=== PATIENT | female | born 1985 | race Caucasian/White ===

== ENCOUNTER 2016-11-07 19:04 | Emergency (ER) | payer SELFPAY ==
[~2016-11-07 19:04] MED LIST: BACI28.43 TP; BACL10TA PO; BUPR150T11 PO; CYCL10TA2 PO; ETON68IM2 SQ; FERR-26 PO; FLUO40CA9 PO; FLUT16SP NS; FLUT1DIS3 INH; GABA600T2 PO; HYDR-971 PO; HYDR25TA PO; LORA10TA3 PO; MOME13HF2 IH; NAPR375T3 PO; NAPR500T8 PO; OMEP40CA5 PO; ONDA8TAB9 PO; OXYC-323 PO; PRED20TA PO; PROAIR HFA8.5 GM INH; QUET200T4 PO; TIZA4TAB PO; TRAZ100T12 PO; VARE0.5T PO
[2016-11-07 19:46] VITALS: BP 142/63
--- NOTE | 2016-11-07 20:06 | PHYS DOC ---
Past Medical History Past Medical History: Anxiety, Arthritis, Asthma, Depression, Fibromyalgia, Migraines Additional Past Medical Histor: PTSD, INSOMNIA, BURSITIS Past Surgical History: Cholecystectomy Additional Past Surgical Histo: LAPROSCOPY,MIRENA REMOVAL Alcohol Use: Occasionally Drug Use: None Adult General Chief Complaint Chief Complaint: EARACHE/EAR PAIN HPI HPI Patient is a 31 year old female with history of fibromyalgia, anxiety, depression, who presents today with left earlobe infection that began a couple days ago after wearing earrings. Patient denies any fever. Patient denies any drainage from the area. Review of Systems Review of Systems Constitutional: Denies fever or chills [] Musculoskeletal: Denies back pain or joint pain [] Integument: Left earlobe infection Neurologic: Denies headache, focal weakness or sensory changes [] Endocrine: Denies polyuria or polydipsia [] Current Medications Current Medications Current Medications Medications (Trade) Dose Ordered Sig/Cindi Start Time Stop Time Status Last Admin Dose Admin Diphtheria/ Tetanus/Acell Pertussis (Boostrix) 0.5 ml ONCE ONCE 11/07/16 20:15 11/07/16 20:16 UNV Allergies Allergies Allergies Coded Allergies Type Severity Reaction Last Updated Verified Penicillins Allergy Intermediate Shortness of Air 08/17/16 Yes amoxicillin Allergy Intermediate 08/17/16 Yes latex Allergy Intermediate Rash 08/17/16 Yes Physical Exam Physical Exam Constitutional: Well developed, well nourished, no acute distress, non-toxic appearance. [] Skin: Left earlobe with small amount of redness and diffuse swelling, no drainage. The lobe is warm and tender to palpate no fluctuance. Back: No tenderness, no CVA tenderness. [] Extremities: No tenderness, no cyanosis, no clubbing, ROM intact, no edema. [] Neurologic: Alert and oriented X 3, normal motor function, normal sensory function, no focal deficits noted. [] Psychologic: Affect normal, judgement normal, mood normal. [] Current Patient Data Vital Signs Vital Signs Date Time Temp Pulse Resp B/P Pulse Ox O2 Delivery O2 Flow Rate FiO2 11/07/16 19:46 98.0 77 16 99 Room Air 98.0 EKG EKG [] Radiology/Procedures Radiology/Procedures [] Course & Med Decision Making Course & Med Decision Making Pertinent Labs and Imaging studies reviewed. (See chart for details) Patient is in the ED with left earlobe infection. She was advised not to wear any earrings until the infection is gone, she was informed the pierced part of the earlobe might. Instructed not re-guevara until the infection is completely healed. Given tetanus in the ED, discharged Bactrim. Instructed to clean the area twice a day and apply warm compresses to the area. Provided return precautions and discharged in stable condition. Dragon Disclaimer Dragon Disclaimer This electronic medical record was generated, in whole or in part, using a voice recognition dictation system. Departure Departure Impression: Primary Impression: Infection of left earlobe Disposition: HOME, SELF-CARE Condition: STABLE Referrals: PEYTON DOLAN MD (PCP) Follow-up with your own doctor in one week Patient Instructions: Skin Infections Additional Instructions: You were seen for left earlobe infection. Keep the area clean and dry. You can apply warm compresses to the area. The guevara part of the ear might close, if that happens do not re-guevara it until the infection has completely healed. Come back to the emergency room if symptoms worsen otherwise follow-up with your own doctor in one week. Scripts Sulfamethoxazole/Trimethoprim (Bactrim Ds Tablet)1 Each Tablet1 Tab PO BID #20 TAB Prov:SHALOM RUBIO APRN 11/07/16 SHALOM RUBIO APRN Nov 07, 2016 20:06
[2016-11-07] MEDS ORDERED: SULF1TAB24 PO (20:12)
[2016-11-07] MEDS ORDERED: DIPHTH,PERTUSS(ACELL),TET TOX 0.5 ML DISP.SYRIN. VAX IM ONE (20:15)
== END 2016-11-07 20:18 | disposition home or self-care (01) ==
LOC: ER 19:04
DX: H60.392 Other infective otitis externa, left ear (principal); F32.9 Major depressive disorder, single episode, unspecified; F43.10 Post-traumatic stress disorder, unspecified; J45.909 Unspecified asthma, uncomplicated; M79.7 Fibromyalgia; G43.909 Migraine, unspecified, not intractable, without status migrainosus; Z90.49 Acquired absence of other specified parts of digestive tract; Z88.0 Allergy status to penicillin; Z88.1 Allergy status to other antibiotic agents; Z91.040 Latex allergy status
CPT/HCPCS: 90471; 90715; 99283-25

== ENCOUNTER 2017-01-03 11:15 | Emergency (ER) | payer OTHER ==
[~2017-01-03] VITALS: Ht 175.3 cm; Wt 123.8 kg
[~2017-01-03 11:15] MED LIST changes: +BENZ100C PO; -ETON68IM2 SQ; +ETON68IM3 SQ; +PRED50TA PO; +SULF1TAB24 PO
[2017-01-03 11:22] VITALS: BP 129/72
[2017-01-03] MEDS ORDERED: POLY10DR OD (11:48)
--- NOTE | 2017-01-03 11:48 | PHYS DOC ---
Past Medical History Past Medical History: Anxiety, Arthritis, Asthma, Depression, Fibromyalgia, Migraines, Other Additional Past Medical Histor: PTSD, INSOMNIA, BURSITIS Past Surgical History: Cholecystectomy, Tonsillectomy Additional Past Surgical Histo: LAPROSCOPY,MIRENA REMOVAL, TUBAL LIGATION Additional Information: 3 TO 4 CIGARETTES A DAY Alcohol Use: Occasionally Drug Use: None Adult General Chief Complaint Chief Complaint: EYE PROBLEMS HPI HPI Patient is a 31 year old female presents emergency Department with complaint of right eye redness and draining that began 2 days ago. Patient does not work contacts. Patient denies any injury to her eye. Patient denies any fevers, chills, myalgias or arthralgias. Patient denies any rashes to her skin. Patient does not have any recall of contact with anyone that has conjunctivitis. She denies antibiotic use in the past 30 days. Review of Systems Review of Systems Constitutional: Denies fever or chills [] Eyes: Denies change in visual acuity, redness, or eye pain [] HENT: Denies nasal congestion or sore throat [] Respiratory: Denies cough or shortness of breath [] Cardiovascular: No additional information not addressed in HPI [] GI: Denies abdominal pain, nausea, vomiting, bloody stools or diarrhea [] : Denies dysuria or hematuria [] Musculoskeletal: Denies back pain or joint pain [] Integument: Denies rash or skin lesions [] Neurologic: Denies headache, focal weakness or sensory changes [] Endocrine: Denies polyuria or polydipsia [] Allergies Allergies Allergies Coded Allergies Type Severity Reaction Last Updated Verified Penicillins Allergy Intermediate Shortness of Air 08/17/16 Yes amoxicillin Allergy Intermediate 08/17/16 Yes latex Allergy Intermediate Rash 08/17/16 Yes Physical Exam Physical Exam Constitutional: Well developed, well nourished, no acute distress, non-toxic appearance. [] HENT: Normocephalic, atraumatic, bilateral external ears normal, oropharynx moist, no oral exudates, nose normal. [] Eyes: Right periorbital region is normal in appearance. There is no Austin Storm Kemar sign. There is mild subconjunctival injection with yellowish green discharge. Extra ocular motions are intact and 6 cardinal positions of gaze. Anterior chamber is deep, clear and quiet. Pupils equal round reactive to light and accommodation. Neck: Normal range of motion, no tenderness, supple, no stridor. [] Cardiovascular:Heart rate regular rhythm, no murmur [] Lungs & Thorax: Bilateral breath sounds clear to auscultation [] Abdomen: Bowel sounds normal, soft, no tenderness, no masses, no pulsatile masses. [] Skin: Warm, dry, no erythema, no rash. [] Back: No tenderness, no CVA tenderness. [] Extremities: No tenderness, no cyanosis, no clubbing, ROM intact, no edema. [] Neurologic: Alert and oriented X 3, normal motor function, normal sensory function, no focal deficits noted. [] Psychologic: Affect normal, judgement normal, mood normal. [] Current Patient Data Vital Signs Vital Signs Date Time Temp Pulse Resp B/P Pulse Ox O2 Delivery O2 Flow Rate FiO2 01/03/17 11:22 98.1 86 20 129/72 95 Room Air 98.1 EKG EKG [] Radiology/Procedures Radiology/Procedures [] Course & Med Decision Making Course & Med Decision Making Pertinent Labs and Imaging studies reviewed. (See chart for details) [] Dragon Disclaimer Dragon Disclaimer This electronic medical record was generated, in whole or in part, using a voice recognition dictation system. Departure Departure Impression: Primary Impression: Conjunctivitis Disposition: 01 HOME, SELF-CARE Condition: GOOD Referrals: PEYTON DOLAN MD (PCP) Patient Instructions: Bacterial Conjunctivitis, [id number] Additional Instructions: 1. Take the medications prescribed. 2. Apply warm compresses to the right eye every 2 hours for 20-30 minutes at a time. 3. Avoid rubbing your eyes much as possible as this will increase irritation. 4. Follow-up with your primary care doctor on Friday or of next week for reevaluation. Scripts Polymyxin B Sulf/Trimethoprim (Polytrim Eye Drops)10 Ml Drops1 Drop OD Q6HRS 7 Days Prov:SAPPHIRE EVERETT 01/03/17 SAPPHIRE EVERETT Jan 03, 2017 11:48
== END 2017-01-03 11:58 | disposition home or self-care (01) ==
LOC: ER 11:15
DX: H10.9 Unspecified conjunctivitis (principal); F41.9 Anxiety disorder, unspecified; M19.90 Unspecified osteoarthritis, unspecified site; J45.909 Unspecified asthma, uncomplicated; F32.9 Major depressive disorder, single episode, unspecified; M79.7 Fibromyalgia; G43.909 Migraine, unspecified, not intractable, without status migrainosus; F43.10 Post-traumatic stress disorder, unspecified; G47.00 Insomnia, unspecified; F17.210 Nicotine dependence, cigarettes, uncomplicated; Z88.0 Allergy status to penicillin; Z88.1 Allergy status to other antibiotic agents; Z91.040 Latex allergy status
CPT/HCPCS: 99283

== ENCOUNTER 2017-01-31 20:16 | Emergency (ER) | payer OTHER ==
[~2017-01-31 20:16] MED LIST changes: +POLY10DR OD
[2017-01-31] MEDS ORDERED: IV NORMAL SALINE 1000ML BAG 1,000 ML IV SCH (22:00)
[2017-01-31 22:08] LABS: BASO # 0.1 x10^3/uL (0.0-0.2); BASO % 1 % (0-3); EOS % 2 % (0-3); HEMATOCRIT 40.2 % (36.0-47.0); HEMOGLOBIN 13.4 g/dL (12.0-15.5); LYMPH # 2.8 x10^3/uL (1.0-4.8); LYMPH % 28 % (24-48); MEAN CORPUSCULAR HEMOGLOBIN 30 pg (25-35); MEAN CORPUSCULAR HGB CONC 33 g/dL (31-37); MEAN CORPUSCULAR VOLUME 90 fL (79-100); MONO % 6 % (0-9); NEUT % 63 % (31-73); PLATELET COUNT 269 x10^3/uL (140-400); RED BLOOD COUNT 4.46 x10^6/uL (3.50-5.40); WHITE BLOOD COUNT 10.1 x10^3/uL (4.0-11.0)
[2017-01-31 22:22] LABS: BILIRUBIN,URINE NEGATIVE (NEG); GLUCOSE,URINE NEGATIVE (NEG); NITRITE,URINE NEGATIVE (NEG); PROTEIN,URINE NEGATIVE (NEG-TRACE)
[2017-01-31 22:29] LABS: BACTERIA,URINE MODERATE /HPF (0-FEW); RBC,URINE 0 /HPF (0-2); SQUAMOUS EPITHELIAL CELL,UR MOD /LPF; WBC,URINE OCC /HPF (0-4); YEAST,URINE PRESENT /HPF
[2017-01-31 22:38] LABS: CALCIUM 8.8 mg/dL (8.5-10.1); GFR 65.6; POTASSIUM 3.2 mmol/L (3.5-5.1)
[2017-01-31 22:54] VITALS: BP 107/55
[2017-01-31] MEDS ORDERED: POTASSIUM CHLORIDE 20 MEQ TABLET.ER. PO ONE (23:00)
[2017-01-31] MEDS ORDERED: LORAZEPAM 1 MG TABLET. PO ONE (23:00)
--- NOTE | 2017-01-31 23:00 | PHYS DOC ---
Past Medical History Past Medical History: Anxiety, Arthritis, Asthma, Depression, Fibromyalgia, Migraines, Other Additional Past Medical Histor: PTSD, INSOMNIA, BURSITIS,LUPUS Past Surgical History: Cholecystectomy, Tonsillectomy Additional Past Surgical Histo: LAPROSCOPY,MIRENA REMOVAL, TUBAL LIGATION Alcohol Use: Occasionally Drug Use: None Adult General Chief Complaint Chief Complaint: DIZZY/LIGHT HEADED HPI HPI Patient is a 31 year old female who presents feeling "jittery". Patient reports about 5:30 PM she started feeling jittery and dizzy (lightheaded). She has had similar episodes in the past. She has not taken anything at home for symptoms. No other acute complaints. Review of Systems Review of Systems Constitutional: Jittery, dizzy. Denies fever or chills Respiratory: Denies cough or shortness of breath Cardiovascular: Denies chest pain GI: Denies abdominal pain, nausea, vomiting, or diarrhea Musculoskeletal: Denies back pain or joint pain Neurologic: Denies headache, focal weakness or sensory changes Current Medications Current Medications Current Medications Medications (Trade) Dose Ordered Sig/Cindi Start Time Stop Time Status Last Admin Dose Admin Lorazepam (Ativan) 1 mg 1X ONCE 01/31/17 23:00 01/31/17 23:01 DC 01/31/17 23:03 1 MG Potassium Chloride (Klor-Con) 40 meq 1X ONCE 01/31/17 23:00 01/31/17 23:01 DC 01/31/17 23:04 40 MEQ Sodium Chloride (Iv Sodium Chloride 0.9% 1000ml Bag) 1,000 ml @ 1,000 mls/hr Q1H 01/31/17 22:00 01/31/17 22:59 DC 01/31/17 21:56 1,000 MLS/HR Allergies Allergies Allergies Coded Allergies Type Severity Reaction Last Updated Verified Penicillins Allergy Intermediate Shortness of Air 08/17/16 Yes amoxicillin Allergy Intermediate 08/17/16 Yes latex Allergy Intermediate Rash 08/17/16 Yes Physical Exam Physical Exam Constitutional: Well developed, well nourished, no acute distress, non-toxic appearance HENT: Normocephalic, atraumatic, bilateral external ears normal Cardiovascular: Heart rate normal, regular rhythm, no murmur Lungs & Thorax: Bilateral breath sounds clear to auscultation Abdomen: Bowel sounds normal, soft, non-distended, no TTP Skin: Warm, dry, no erythema, no rash Extremities: No obvious deformity, no edema Neurologic: Alert and oriented X 3, no gross deficits noted Psychologic: Anxious Current Patient Data Vital Signs Vital Signs Date Time Temp Pulse Resp B/P Pulse Ox O2 Delivery O2 Flow Rate FiO2 01/31/17 22:54 68 107/55 99 Room Air 01/31/17 20:53 97.9 20 97.9 Lab Values Laboratory Tests Test 01/31/17 20:20 01/31/17 21:03 01/31/17 21:27 POC Urine HCG, Qualitative Hcg negative (Negative) Urine Collection Type Unknown Urine Color Yellow Urine Clarity Clear Urine pH 6.0 Urine Specific [place] 1.020 Urine Protein Negativemg/dL (NEG-TRACE) Urine Glucose (UA) Negativemg/dL (NEG) Urine Ketones (Stick) Negativemg/dL (NEG) Urine Blood Negative (NEG) Urine Nitrite Negative (NEG) Urine Bilirubin Negative (NEG) Urine Urobilinogen Dipstick 1.0mg/dL (0.2 mg/dL) Urine Leukocyte Esterase Trace (NEG) Urine RBC 0/HPF (0-2) Urine WBC Occ/HPF (0-4) Urine Squamous Epithelial Cells Mod/LPF Urine Bacteria Moderate/HPF (0-FEW) Urine Mucus Marked/LPF Urine Yeast Present/HPF White Blood Count 10.1x10^3/uL (4.0-11.0) Red Blood Count 4.46x10^6/uL (3.50-5.40) Hemoglobin 13.4g/dL (12.0-15.5) Hematocrit 40.2% (36.0-47.0) Mean Corpuscular Volume 90fL (79-100) Mean Corpuscular Hemoglobin 30pg (25-35) Mean Corpuscular Hemoglobin Concent 33g/dL (31-37) Red Cell Distribution Width 14.0% (11.5-14.5) Platelet Count 269x10^3/uL (140-400) Neutrophils (%) (Auto) 63% (31-73) Lymphocytes (%) (Auto) 28% (24-48) Monocytes (%) (Auto) 6% (0-9) Eosinophils (%) (Auto) 2% (0-3) Basophils (%) (Auto) 1% (0-3) Neutrophils # (Auto) 6.4x10^3uL (1.8-7.7) Lymphocytes # (Auto) 2.8x10^3/uL (1.0-4.8) Monocytes # (Auto) 0.6x10^3/uL (0.0-1.1) Eosinophils # (Auto) 0.2x10^3/uL (0.0-0.7) Basophils # (Auto) 0.1x10^3/uL (0.0-0.2) Sodium Level 140mmol/L (136-145) Potassium Level 3.2mmol/L (3.5-5.1) L Chloride Level 101mmol/L (98-107) Carbon Dioxide Level 30mmol/L (21-32) Anion Gap 9 (6-14) Blood Urea Nitrogen 12mg/dL (7-20) Creatinine 1.0mg/dL (0.6-1.0) Estimated GFR (Cockcroft-Gault) 65.6 Glucose Level 87mg/dL (70-99) Calcium Level 8.8mg/dL (8.5-10.1) Laboratory Tests 01/31/17 21:27 Laboratory Tests 01/31/17 21:27 EKG EKG EKG (my read): sinus rhythm, rate 67, normal axis, QTc 462ms, no acute ischemic changes Radiology/Procedures Radiology/Procedures [] Course & Med Decision Making Course & Med Decision Making Pertinent Labs and Imaging studies reviewed. (See chart for details) Patient is 31 year old female who presents feeling "jittery". Likely due to anxiety. Will check EKG, labs to screen for other causes. IV fluid bolus ordered. EKG ok per my read. Labs largely unremarkable. Slight hypokalemia, oral replacement ordered. Discussed results with patient, who is feeling a little better at this time. Dose of anxiety meds ordered. Patient discharged with instructions for follow up and return precautions. Dragon Disclaimer Dragon Disclaimer This electronic medical record was generated, in whole or in part, using a voice recognition dictation system. Departure Departure Impression: Primary Impression: Jittery feeling Disposition: 01 HOME, SELF-CARE Condition: STABLE Referrals: PEYTON DOALN MD (PCP) Patient Instructions: Anxiety and Panic Attacks Additional Instructions: Thank you for allowing us to provide care today in the Emergency Department. Your evaluation in the Emergency Department did not reveal any concerning reasons for your symptoms. Schedule a follow up appointment with your primary care doctor. Return promptly to the Emergency Department if you develop any new or concerning symptoms. RUBEN RM MD Jan 31, 2017 23:00
--- NOTE | 2017-02-01 12:17 | EKG ---
[facility] [address] [place] [address] Test Date: 2017-01-31 Test Time: 21:58:38 Pat Name: DENNIS ROMAN Department: Room: Gender: F Sourcing Specialist: : 1985 Requested By: RUBEN RM Order Number: [id number] Reading MD: Nayeli Siddiqui Measurements Intervals [place] Rate: 67 P: 64 [place]: 170 QRS: 19 QRSD: 98 T: 25 QT: 434 QTc: 462 Interpretive Statements SINUS RHYTHM T ABNORMALITY IN ANTEROSEPTAL LEADS CONSIDER MYOCARDIAL ISCHEMIA ABNORMAL ECG RI6.01 Compared to ECG 08/23/2016 19:42:39 T-wave abnormality now present Electronically Signed On 02-02-2017 17:28:17 CDT by Nayeli Siddiqui
== END 2017-01-31 23:33 | disposition home or self-care (01) ==
LOC: ER 20:16
DX: R45.0 Nervousness (principal); R42 Dizziness and giddiness; E87.6 Hypokalemia; F41.9 Anxiety disorder, unspecified; M19.90 Unspecified osteoarthritis, unspecified site; J45.909 Unspecified asthma, uncomplicated; F32.9 Major depressive disorder, single episode, unspecified; M79.7 Fibromyalgia; G43.909 Migraine, unspecified, not intractable, without status migrainosus; F43.10 Post-traumatic stress disorder, unspecified; M32.9 Systemic lupus erythematosus, unspecified; G47.00 Insomnia, unspecified; Z88.0 Allergy status to penicillin; Z88.1 Allergy status to other antibiotic agents; Z91.040 Latex allergy status
CPT/HCPCS: 36415; 80048; 81001; 81025; 85027; 87086; 93005; 96360; 99285; J7030

== ENCOUNTER 2017-02-24 14:50 | Emergency (ER) | payer OTHER ==
[~2017-02-24] VITALS: Ht 175.3 cm; Wt 122.5 kg
[2017-02-24 15:14] VITALS: BP 134/60
[2017-02-24] MEDS ORDERED: HYDROcodone/APAP 5/325MG 1 TAB TABLET PO ONE (15:30)
[2017-02-24] MEDS ORDERED: DIPHTH,PERTUSS(ACELL),TET TOX 0.5 ML DISP.SYRIN. VAX IM ONE (15:30)
[2017-02-24] MEDS ORDERED: LIDOCAINE 1% / SOD BICARB 8.4% 20 ML VIAL. IJ ONE (15:30)
--- NOTE | 2017-02-24 15:49 | PHYS DOC ---
Past Medical History Past Medical History: Anxiety, Arthritis, Asthma, Depression, Fibromyalgia, Migraines, Other Additional Past Medical Histor: PTSD, INSOMNIA, BURSITIS,LUPUS Past Surgical History: Cholecystectomy, Tonsillectomy, Tubal ligation Additional Past Surgical Histo: LAPROSCOPY,MIRENA REMOVAL, TUBAL LIGATION Additional Information: < 1/2 ppd Alcohol Use: Occasionally Drug Use: None Adult General Chief Complaint Chief Complaint: FOOT INJURY PAIN HPI HPI Patient is a 31 year old female with history of arthritis, fibromyalgia, anxiety who presents today with puncture wound to the right foot. Patient states she stepped on a telephone patent paralegal prong and it went into her foot, she had rubber slippers on and it pierced through the slippers. Review of Systems Review of Systems Constitutional: Denies fever or chills [] Eyes: Denies change in visual acuity, redness, or eye pain [] HENT: Denies nasal congestion or sore throat [] Musculoskeletal: Denies back pain or joint pain [] Integument: puncture wound to the right foot Neurologic: Denies headache, focal weakness or sensory changes [] Endocrine: Denies polyuria or polydipsia [] Current Medications Current Medications Current Medications Medications (Trade) Dose Ordered Sig/Cindi Start Time Stop Time Status Last Admin Dose Admin Acetaminophen/ Hydrocodone Bitart (Lortab 5/325) 1 tab 1X ONCE 02/24/17 15:30 02/24/17 15:31 DC 02/24/17 15:30 1 TAB Diphtheria/ Tetanus/Acell Pertussis (Boostrix) 0.5 ml ONCE ONCE 02/24/17 15:30 02/24/17 15:31 Cancel Lidocaine/Sodium Bicarbonate (Buffered Lidocaine 1%) 20 ml 1X ONCE 02/24/17 15:30 02/24/17 15:31 DC Allergies Allergies Allergies Coded Allergies Type Severity Reaction Last Updated Verified Penicillins Allergy Intermediate Shortness of Air 08/17/16 Yes amoxicillin Allergy Intermediate 08/17/16 Yes latex Allergy Intermediate Rash 08/17/16 Yes Physical Exam Physical Exam Constitutional: Well developed, well nourished, no acute distress, non-toxic appearance. [] HENT: Normocephalic, atraumatic, bilateral external ears normal, oropharynx moist, no oral exudates, nose normal. [] Eyes: PERRLA, EOMI, conjunctiva normal, no discharge. [] Skin: right arc of the foot with two puncture wounds approx. 1 cm each consistent with stepping on a patent paralegal prongs, no tendon involvement. Neurovascular exam is intact to the RLE. +2 right pedal pulses. Cap refill <2 seconds. Back: No tenderness, no CVA tenderness. [] Extremities: No tenderness, no cyanosis, no clubbing, ROM intact, no edema. [] Neurologic: Alert and oriented X 3, normal motor function, normal sensory function, no focal deficits noted. [] Psychologic: Affect normal, judgement normal, mood normal. [] Current Patient Data Vital Signs Vital Signs Date Time Temp Pulse Resp B/P (MAP) Pulse Ox O2 Delivery O2 Flow Rate FiO2 02/24/17 15:30 16 02/24/17 15:14 98.1 67 95 Room Air 98.1 EKG EKG [] Radiology/Procedures Radiology/Procedures []PROCEDURE: FOOT RIGHT 3V Examination: 3 views of the right foot History: History of puncture wound to the arch of the foot Comparison: None available Findings: The alignment of the tarsal bones grossly appears unremarkable. The tarsometatarsal joints, metatarsophalangeal, interphalangeal joint grossly appears unremarkable. Small osteophyte identified in the superior aspect of the navicular bone. Impression: No acute osseous findings. Indication: []right foot lacerations Procedure: The patient was placed in the appropriate position and anesthesia around the lacerations was 1% buffered lidocaine. The area was then cleaned with 100 ML of normal saline and Betadine. First laceration was closed with 2 interrupted sutures using 4. 0 Ethilon, second laceration was closed with one interrupted sutures using 4. 0 Ethilon. Wound was covered with gauze. Total repaired wound length: 2 lacerations 1 cm each Other Items:none The patient tolerated the procedure well Complications:none DICTATED and SIGNED BY: JOLYNN RAO MD DATE: 02/24/17 [id number] CC: PEYTON DOLAN MD; SHALOM RUBIO APRN; NON,STAFF ~ Course & Med Decision Making Course & Med Decision Making Pertinent Labs and Imaging studies reviewed. (See chart for details) Patient has puncture wound to the right foot after stepping on a patent paralegal prong. Her tetanus is up-to-date. Right foot x-rays interpreted by radiologist are negative for any acute findings. Lacerations were closed by me as noted in procedures. Discharged with Cipro because she had rubber shoes on when she stepped of the prongs. Provided wound care instructions as well as return precautions. Discharged in stable condition. Dragon Disclaimer Dragon Disclaimer This electronic medical record was generated, in whole or in part, using a voice recognition dictation system. Departure Departure Impression: Primary Impression: Puncture wound of foot Disposition: HOME, SELF-CARE Condition: STABLE Referrals: PEYTON DOLAN MD (PCP) follow up with your doctor in 7-10 days for suture removal Patient Instructions: Puncture Wound Additional Instructions: You have puncture wound to the right foot which was closed with stitches. Keep the area clean and dry. Follow-up with your doctor in 7-10 days for suture removal or you can come back to the emergency room. Apply Neosporin to the area twice a day. Scripts Tramadol Hcl (ULTRAM) 50 Mg Tablet 1 TAB PO Q6HRS, #30 TAB Prov: SHALOM RUBIO APRN 02/24/17 Ciprofloxacin Hcl (CIPRO) 500 Mg Tablet 1 TAB PO BID, #14 TAB Prov: SHALOM RUBIO APRN 02/24/17 Problem Qualifiers Primary Impression: Puncture wound of foot Encounter type: initial encounter Laterality: right Qualified Codes: S91.331A - Puncture wound without foreign body, right foot, initial encounter SHALOM RUBIO APRN February 24, 2017 15:49
[2017-02-24] MEDS ORDERED: TRAM-29 PO (16:10)
[2017-02-24] MEDS ORDERED: CIPR500T94 PO (16:10)
== END 2017-02-24 16:20 | disposition home or self-care (01) ==
LOC: ER 15:46
DX: S91.331A Puncture wound without foreign body, right foot, initial encounter (principal); J45.909 Unspecified asthma, uncomplicated; G43.909 Migraine, unspecified, not intractable, without status migrainosus; F43.10 Post-traumatic stress disorder, unspecified; G47.00 Insomnia, unspecified; M32.9 Systemic lupus erythematosus, unspecified; M79.7 Fibromyalgia; Z98.51 Tubal ligation status; Z90.49 Acquired absence of other specified parts of digestive tract; F17.200 Nicotine dependence, unspecified, uncomplicated; W18.39XA Other fall on same level, initial encounter; Y99.8 Other external cause status; Y93.89 Activity, other specified; Y92.89 Other specified places as the place of occurrence of the external cause
CPT/HCPCS: 12001; 73630; 99284-25

== ENCOUNTER 2017-04-17 20:02 | Emergency (ER) | payer OTHER ==
[~2017-04-17] VITALS: Ht 175.3 cm; Wt 126.1 kg
[~2017-04-17 20:02] MED LIST changes: +CIPR500T94 PO; +TRAM-48 PO
[2017-04-17 20:25] VITALS: BP 158/59
--- NOTE | 2017-04-17 20:26 | RAD ---
Indication: Left-sided numbness and slurred speech. Axial imaging through the brain was performed without contrast. One or more of the following individualized dose reduction techniques were utilized for this examination: 1. Automated exposure control 2. Adjustment of the mA and/or kV according to patient size 3. Use of iterative reconstruction technique Correlation is made with prior head CT from 05/18/2016. The ventricles and sulci are within normal limits. No sulcal effacement is identified. No midline shift or hemorrhage is detected. The cisterns are patent. The visualized paranasal sinuses are clear. IMPRESSION: No acute intracranial process is detected. Electronically signed by: Antonio Tom MD (04/17/2017 8:23 PM) [facility]
[2017-04-17] MEDS ORDERED: METOCLOPRAMIDE HCL 10 MG/2 ML VIAL. IV ONE (20:30)
[2017-04-17] MEDS ORDERED: IV NORMAL SALINE 1000ML BAG 1,000 ML IV ONE (20:30)
[2017-04-17] MEDS ORDERED: diphenhydrAMINE 50 MG/ML VIAL IVP ONE (20:30)
[2017-04-17] MEDS ORDERED: PROCHLORPERAZINE 10 MG/2 ML VIAL. IV ONE (20:30)
[2017-04-17 20:57] LABS: BASO # 0.1 x10^3/uL (0.0-0.2); BASO % 1 % (0-3); EOS % 3 % (0-3); HEMATOCRIT 43.2 % (36.0-47.0); HEMOGLOBIN 14.5 g/dL (12.0-15.5); LYMPH # 3.4 x10^3/uL (1.0-4.8); LYMPH % 26 % (24-48); MEAN CORPUSCULAR HEMOGLOBIN 30 pg (25-35); MEAN CORPUSCULAR HGB CONC 34 g/dL (31-37); MEAN CORPUSCULAR VOLUME 91 fL (79-100); MONO % 6 % (0-9); NEUT % 64 % (31-73); PLATELET COUNT 255 x10^3/uL (140-400); RED BLOOD COUNT 4.76 x10^6/uL (3.50-5.40); RED CELL DISTRIBUTION WIDTH 15.6 % (11.5-14.5); WHITE BLOOD COUNT 12.8 x10^3/uL (4.0-11.0)
[2017-04-17 21:05] LABS: BARBITURATES NEG (NEG); BENZODIAZEPINES NEG (NEG); CANNABINOIDS NEG (NEG); COCAINE NEG (NEG); METHADONE NEG (NEG); OPIATES NEG (NEG); PHENCYCLIDINE NEG (NEG)
[2017-04-17 21:07] LABS: INR 1.1 (0.8-1.1); PROTHROMBIN TIME PATIENT 13.2 SEC (11.7-14.0)
[2017-04-17 21:11] LABS: CALCIUM 7.7 mg/dL (8.5-10.1); GFR 65.6; POTASSIUM 4.3 mmol/L (3.5-5.1)
[2017-04-17 21:17] LABS: ALBUMIN 3.5 g/dL (3.4-5.0); C-REACTIVE PROTEIN 4.3 mg/L (0-3.3); TOTAL BILIRUBIN 0.2 mg/dL (0.2-1.0)
--- NOTE | 2017-04-18 06:11 | EKG ---
[facility] [address] [place] [address] Test Date: 2017-04-17 Test Time: 20:25:33 Pat Name: DENNIS ROMAN Department: Room: Gender: F Administrative Staff Supervisor: : 1985 Requested By: IRIS LOERA Order Number: [id number] Reading MD: Measurements Intervals [place] Rate: 77 P: 28 [place]: 150 QRS: 10 QRSD: 90 T: 28 QT: 376 QTc: 427 Interpretive Statements SINUS RHYTHM INCOMPLETE RIGHT BUNDLE BRANCH BLOCK QRS(T) CONTOUR ABNORMALITY CONSIDER ANTEROSEPTAL MYOCARDIAL DAMAGE RI6.01 Unconfirmed report No previous ECG available for comparison
--- NOTE | 2017-04-18 07:03 | ED.ADGEN ---
Past Medical History Past Medical History: Anxiety, Arthritis, Asthma, Depression, Fibromyalgia, Migraines, Other Additional Past Medical Histor: PTSD, INSOMNIA, BURSITIS,LUPUS Past Surgical History: Cholecystectomy, Tonsillectomy, Tubal ligation Additional Past Surgical Histo: LAPROSCOPY,MIRENA REMOVAL, TUBAL LIGATION Alcohol Use: Occasionally Drug Use: None Adult General Chief Complaint Chief Complaint: NEURO SYMPTOMS/DEFICITS [facility] HPI Patient is a 31 year old female with history of cluster headaches Zent[place] with left facial numbness, slurring speech, left upper and left lower extremity weakness with decreased sensation. Symptoms began last evening approximately 6 PM of gradually progress. Patient also reports right temporal headache, described as throbbing headache and rated moderate to severe. Headache is not sudden onset is not the worst headache of the patient's life neck pain, stiffness, change of vision, chest pain, palpitations, shortness of breath. No vomiting, neck pain stiffness, rash. Not currently on any diet supplements weight loss medications. Last menstrual period was 2 weeks ago. Patient has tubal ligation. No other acute symptoms or complaints. Review of Systems Review of Systems ROS as per HPI Current Medications Current Medications Current Medications Medications (Trade) Dose Ordered Sig/Cindi Start Time Stop Time Status Last Admin Dose Admin Diphenhydramine HCl (Benadryl) 50 mg 1X ONCE 04/17/17 20:30 04/17/17 20:35 DC 04/17/17 21:01 50 MG Metoclopramide HCl (Reglan) 10 mg 1X ONCE 04/17/17 20:30 04/17/17 20:35 DC 04/17/17 21:01 10 MG Prochlorperazine Edisylate (Compazine) 10 mg 1X ONCE 04/17/17 20:30 04/17/17 20:35 DC 04/17/17 21:01 10 MG Sodium Chloride 1,000 ml @ 1,000 mls/hr 1X ONCE 04/17/17 20:30 04/17/17 21:29 DC 04/17/17 21:01 1,000 MLS/HR Allergies Allergies Allergies Coded Allergies Type Severity Reaction Last Updated Verified Penicillins Allergy Intermediate Shortness of Air 08/17/16 Yes amoxicillin Allergy Intermediate 08/17/16 Yes latex Allergy Intermediate Rash 08/17/16 Yes Physical Exam Physical Exam Constitutional: Well developed, well nourished, no acute distress, non-toxic appearance. HENT: Normocephalic, atraumatic, bilateral external ears normal, oropharynx moist, no oral exudates, nose normal. Eyes: PERRLA, EOMI, conjunctiva normal. Neck: Normal range of motion, no tenderness, supple. Cardiovascular:Heart rate regular rhythm, no murmur. Lungs & Thorax: Bilateral breath sounds clear to auscultation. Abdomen: Bowel sounds normal, soft, no tenderness. Skin: Warm, dry, no erythema. Back: No tenderness, no CVA tenderness. Extremities: No tenderness. Neurologic: Alert and oriented X 3, mild dysarthria, decreased sensation left side face compared to right, no facial droop or weakness, left upper extremity, pronator drift, decreased sensation on left arm compared to right, left leg drop. Patient is unable to support against gravity. Normal [id number]. Psychologic: Affect, anxious, Current Patient Data Vital Signs Vital Signs Date Time Temp Pulse Resp B/P (MAP) Pulse Ox O2 Delivery O2 Flow Rate FiO2 04/17/17 20:25 98.7 77 18 158/59 (92) 100 Room Air 98.7 Lab Values Laboratory Tests Test 04/17/17 20:40 White Blood Count 12.8 x10^3/uL (4.0-11.0) H Red Blood Count 4.76 x10^6/uL (3.50-5.40) Hemoglobin 14.5 g/dL (12.0-15.5) Hematocrit 43.2 % (36.0-47.0) Mean Corpuscular Volume 91 fL (79-100) Mean Corpuscular Hemoglobin 30 pg (25-35) Mean Corpuscular Hemoglobin Concent 34 g/dL (31-37) Red Cell Distribution Width 15.6 % (11.5-14.5) H Platelet Count 255 x10^3/uL (140-400) Neutrophils (%) (Auto) 64 % (31-73) Lymphocytes (%) (Auto) 26 % (24-48) Monocytes (%) (Auto) 6 % (0-9) Eosinophils (%) (Auto) 3 % (0-3) Basophils (%) (Auto) 1 % (0-3) Neutrophils # (Auto) 8.2 x10^3uL (1.8-7.7) H Lymphocytes # (Auto) 3.4 x10^3/uL (1.0-4.8) Monocytes # (Auto) 0.7 x10^3/uL (0.0-1.1) Eosinophils # (Auto) 0.3 x10^3/uL (0.0-0.7) Basophils # (Auto) 0.1 x10^3/uL (0.0-0.2) Erythrocyte Sedimentation Rate 11 (0-25) Prothrombin Time 13.2 SEC (11.7-14.0) Prothrombin Time INR 1.1 (0.8-1.1) Sodium Level 144 mmol/L (136-145) Potassium Level 4.3 mmol/L (3.5-5.1) Chloride Level 107 mmol/L (98-107) Carbon Dioxide Level 27 mmol/L (21-32) Anion Gap 10 (6-14) Blood Urea Nitrogen 16 mg/dL (7-20) Creatinine 1.0 mg/dL (0.6-1.0) Estimated GFR (Cockcroft-Gault) 65.6 BUN/Creatinine Ratio 16 (6-20) Glucose Level 113 mg/dL (70-99) H Calcium Level 7.7 mg/dL (8.5-10.1) L Total Bilirubin 0.2 mg/dL (0.2-1.0) Aspartate Amino Transferase (AST) 14 U/L (15-37) L Alanine Aminotransferase (ALT) 24 U/L (14-59) Alkaline Phosphatase 85 U/L (46-116) C-Reactive Protein, Quantitative 4.3 mg/L (0-3.3) H Total Protein 7.0 g/dL (6.4-8.2) Albumin 3.5 g/dL (3.4-5.0) Albumin/Globulin Ratio 1.0 (1.0-1.7) Urine Opiates Screen Neg (NEG) Urine Methadone Screen Neg (NEG) Urine Barbiturates Neg (NEG) Urine Phencyclidine Screen Neg (NEG) Urine Amphetamine/Methamphetamine Neg (NEG) Urine Benzodiazepines Screen Neg (NEG) Urine Cocaine Screen Neg (NEG) Urine Cannabinoids Screen Neg (NEG) Urine Ethyl Alcohol Neg (NEG) Laboratory Tests 04/17/17 20:40 Laboratory Tests 04/17/17 20:40 EKG EKG [] Radiology/Procedures Radiology/Procedures CT head: No acute intracranial process per radiology report. Course & Med Decision Making Course & Med Decision Making Pertinent Labs and Imaging studies reviewed. (See chart for details) Patient was focal neurologic deficits with unknown etiology. CT head negative. Concern for possible TIA versus MS versus vasculitis versus complex migraine versus unknown etiology. MRI indicated for further evaluation. However, patient is unwilling to have an MRI performed while in the emergency department. I offered to perform provide the patient some sedation for treatment of any anxiety or claustrophobia which she declined. She states her symptoms resolved she feels much better and she is to go home. Inform patient that I cannot exclude a more serious cause of her neurologic deficits paced upon the current workup. She verbalizes understanding of risks of missed or delayed diagnosis but prefers to follow-up with her PCP. She agrees to leave the emergency department AGAINST MEDICAL ADVICE. She is instructed to return to the ED should she change her mind regarding further testing, and hospital admission. Dragon Disclaimer Dragon Disclaimer This electronic medical record was generated, in whole or in part, using a voice recognition dictation system. IRIS LOERA DO Apr 18, 2017 07:03
== END 2017-04-17 22:39 | disposition left against medical advice (07) ==
LOC: ER 20:02
DX: R20.0 Anesthesia of skin (principal); R47.81 Slurred speech; R51 Headache; R53.1 Weakness; R29.818 Other symptoms and signs involving the nervous system; F41.9 Anxiety disorder, unspecified; M19.90 Unspecified osteoarthritis, unspecified site; J45.909 Unspecified asthma, uncomplicated; F32.9 Major depressive disorder, single episode, unspecified; M79.7 Fibromyalgia; G43.909 Migraine, unspecified, not intractable, without status migrainosus; F43.10 Post-traumatic stress disorder, unspecified; G47.00 Insomnia, unspecified; M32.9 Systemic lupus erythematosus, unspecified; Z88.0 Allergy status to penicillin; Z90.49 Acquired absence of other specified parts of digestive tract; Z98.51 Tubal ligation status; Z88.1 Allergy status to other antibiotic agents; Z91.040 Latex allergy status
CPT/HCPCS: 36415; 70450; 80053; 80305; 80320; 85027; 85610; 85651; 86140; 93005; 96361; 96374; 96375; 99285; J0780; J1200; J2765; J7030; G0481

== ENCOUNTER 2017-04-22 17:23 | Emergency (ER) | payer OTHER ==
[~2017-04-22] VITALS: Ht 175.3 cm; Wt 125.6 kg
[2017-04-22 18:01] LABS: BASO # 0.1 x10^3/uL (0.0-0.2); BASO % 1 % (0-3); EOS % 1 % (0-3); HEMATOCRIT 42.9 % (36.0-47.0); HEMOGLOBIN 14.6 g/dL (12.0-15.5); LYMPH # 2.8 x10^3/uL (1.0-4.8); LYMPH % 22 % (24-48); MEAN CORPUSCULAR HEMOGLOBIN 30 pg (25-35); MEAN CORPUSCULAR HGB CONC 34 g/dL (31-37); MEAN CORPUSCULAR VOLUME 88 fL (79-100); MONO % 6 % (0-9); NEUT % 70 % (31-73); PLATELET COUNT 243 x10^3/uL (140-400); RED BLOOD COUNT 4.88 x10^6/uL (3.50-5.40); WHITE BLOOD COUNT 12.8 x10^3/uL (4.0-11.0)
--- NOTE | 2017-04-22 18:07 | PHYS DOC ---
Past Medical History Past Medical History: Anxiety, Arthritis, Asthma, Depression, Fibromyalgia, Migraines, Other Additional Past Medical Histor: PTSD, INSOMNIA, BURSITIS,LUPUS Past Surgical History: Cholecystectomy, Tonsillectomy, Tubal ligation Additional Past Surgical Histo: LAPROSCOPY,MIRENA REMOVAL, TUBAL LIGATION Alcohol Use: Occasionally Drug Use: None Adult General Chief Complaint Chief Complaint: OTHER COMPLAINTS [facility] HPI Patient is a 31 year old female who presents with one week history of left arm and leg weakness and some tingling that was gradual in onset she was evaluated in the ER had a negative head CT at that time but was unable to complete the MRI due to anxiety. Since then the symptoms have not improved. Stayed the same. She's had prior episodes similar this with her cluster headaches but denies headache at this time. No blurry vision or diplopia. No neck or back pain or fever. Recent diagnosis of possible lupus denies diabetes. Reports some unsteadiness in gait. Patient has had these symptoms multiple times over the course of several years per the patient and family members in the room. Review of Systems Review of Systems Constitutional: Denies fever or chills [] Eyes: Denies change in visual acuity, redness, or eye pain [] HENT: Denies nasal congestion or sore throat [] Respiratory: Denies cough or shortness of breath [] Cardiovascular: No additional information not addressed in HPI [] GI: Denies abdominal pain, nausea, vomiting, bloody stools or diarrhea [] : Denies dysuria or hematuria [] Musculoskeletal: Denies back pain or joint pain [] Integument: Denies rash or skin lesions [] Neurologic: Denies headache, focal weakness or sensory changes [] Endocrine: Denies polyuria or polydipsia [] Current Medications Current Medications Current Medications Medications (Trade) Dose Ordered Sig/Cindi Start Time Stop Time Status Last Admin Dose Admin Gadobutrol (Gadavist) 10 mmol 1X ONCE 04/22/17 19:15 04/22/17 19:16 DC 04/22/17 19:19 10 MMOL Lorazepam (Ativan) 1.5 mg 1X ONCE 04/22/17 18:15 04/22/17 18:16 DC 04/22/17 18:40 1.5 MG Allergies Allergies Allergies Coded Allergies Type Severity Reaction Last Updated Verified Penicillins Allergy Intermediate Shortness of Air 08/17/16 Yes amoxicillin Allergy Intermediate 08/17/16 Yes latex Allergy Intermediate Rash 08/17/16 Yes Physical Exam Physical Exam Constitutional: Well developed, well nourished, no acute distress, non-toxic appearance. [] HENT: Normocephalic, atraumatic, bilateral external ears normal, oropharynx moist, no oral exudates, nose normal. [] Eyes: PERRLA, EOMI, conjunctiva normal, no discharge. [] Neck: Normal range of motion, no tenderness, supple, no stridor. [] Cardiovascular:Heart rate regular rhythm, no murmur [] Lungs & Thorax: Bilateral breath sounds clear to auscultation [] Abdomen: Bowel sounds normal, soft, no tenderness, no masses, no pulsatile masses. [] Skin: Warm, dry, no erythema, no rash. [] Back: No tenderness, no CVA tenderness. [] Extremities: No tenderness, no cyanosis, no clubbing, ROM intact, no edema. [] Neurologic: Alert and oriented X 3, normal motor function, normal sensory function, no focal deficits noted. [Good finger to nose, no pronator drift; able to lift both legs with some slight decrease in strength on the left. Equal floor tiling professional strength. Objective decrease in sensation left arm and left leg. Decreased patellar reflexes bilaterally.NIH score of 1 or 2.] Psychologic: Affect normal, judgement normal, mood normal. [] Current Patient Data Vital Signs Vital Signs Date Time Temp Pulse Resp B/P (MAP) Pulse Ox O2 Delivery O2 Flow Rate FiO2 04/22/17 20:42 86 18 123/63 (83) 95 Room Air 04/22/17 17:40 98.0 98.0 Lab Values Laboratory Tests Test 04/22/17 16:47 04/22/17 17:50 POC Urine HCG, Qualitative Hcg negative (Negative) White Blood Count 12.8 x10^3/uL (4.0-11.0) H Red Blood Count 4.88 x10^6/uL (3.50-5.40) Hemoglobin 14.6 g/dL (12.0-15.5) Hematocrit 42.9 % (36.0-47.0) Mean Corpuscular Volume 88 fL (79-100) Mean Corpuscular Hemoglobin 30 pg (25-35) Mean Corpuscular Hemoglobin Concent 34 g/dL (31-37) Red Cell Distribution Width 15.0 % (11.5-14.5) H Platelet Count 243 x10^3/uL (140-400) Neutrophils (%) (Auto) 70 % (31-73) Lymphocytes (%) (Auto) 22 % (24-48) L Monocytes (%) (Auto) 6 % (0-9) Eosinophils (%) (Auto) 1 % (0-3) Basophils (%) (Auto) 1 % (0-3) Neutrophils # (Auto) 9.0 x10^3uL (1.8-7.7) H Lymphocytes # (Auto) 2.8 x10^3/uL (1.0-4.8) Monocytes # (Auto) 0.7 x10^3/uL (0.0-1.1) Eosinophils # (Auto) 0.1 x10^3/uL (0.0-0.7) Basophils # (Auto) 0.1 x10^3/uL (0.0-0.2) Sodium Level 142 mmol/L (136-145) Potassium Level 3.8 mmol/L (3.5-5.1) Chloride Level 104 mmol/L (98-107) Carbon Dioxide Level 26 mmol/L (21-32) Anion Gap 12 (6-14) Blood Urea Nitrogen 10 mg/dL (7-20) Creatinine 0.9 mg/dL (0.6-1.0) Estimated GFR (Cockcroft-Gault) 74.0 BUN/Creatinine Ratio 11 (6-20) Glucose Level 108 mg/dL (70-99) H Calcium Level 9.4 mg/dL (8.5-10.1) Total Bilirubin 0.3 mg/dL (0.2-1.0) Aspartate Amino Transferase (AST) 20 U/L (15-37) Alanine Aminotransferase (ALT) 30 U/L (14-59) Alkaline Phosphatase 89 U/L (46-116) Total Protein 7.7 g/dL (6.4-8.2) Albumin 4.0 g/dL (3.4-5.0) Albumin/Globulin Ratio 1.1 (1.0-1.7) Laboratory Tests 04/22/17 17:50 Laboratory Tests 04/22/17 17:50 EKG EKG EKG normal sinus rhythm rate of 74 no STEMI slight T-wave inversion anteriorly which represents a persistent juvenile pattern in this young patient QTC normal. My interpretation [] Radiology/Procedures Radiology/Procedures MRI with and without contrast of the brain: No lesions or stroke per radiology report] Course & Med Decision Making Course & Med Decision Making Pertinent Labs and Imaging studies reviewed. (See chart for details) Per the patient and family patient has had several episodes exactly like this in the past. I do not suspect a dural sinus thrombosis at this point in time. MRI of the brain with and without contrast was unremarkable. We've excluded stroke and any lesions consistent with multiple sclerosis. I recommended that she get a referral from her PCP to be evaluated by neurology. At this point I do not seen an emergent indication for admission to the hospital. [] Dragon Disclaimer Dragon Disclaimer This electronic medical record was generated, in whole or in part, using a voice recognition dictation system. Departure Departure Impression: Primary Impression: Paresthesia of left arm and leg Disposition: 01 HOME, SELF-CARE Condition: STABLE Referrals: PEYTON DOLAN MD (PCP) Patient Instructions: Paresthesia, [id number] Additional Instructions: Please get referral to neurology from your primary care physician. MAKAYLA JOHNSON MD Apr 22, 2017 18:07
[2017-04-22 18:13] LABS: CALCIUM 9.4 mg/dL (8.5-10.1); CREATININE 0.9 mg/dL (0.6-1.0); POTASSIUM 3.8 mmol/L (3.5-5.1)
[2017-04-22 18:21] LABS: ALBUMIN/GLOBULIN RATIO 1.1 (1.0-1.7); TOTAL BILIRUBIN 0.3 mg/dL (0.2-1.0); TOTAL PROTEIN 7.7 g/dL (6.4-8.2)
[2017-04-22] MEDS ORDERED: GADOBUTROL 10 MMOL/10 ML VIAL IV ONE (19:15)
--- NOTE | 2017-04-22 20:01 | RAD ---
MR BRAIN WITH CONTRAST HISTORY: PERSISTENT LEFT SIDED WEAKNESS X 5 DAYS,POSSIBLE DEMYELINATING DISEASE NO SX HX, NO PRIORS, 10ML GADAVIST COMPARISON: CT head from 05/18/2016 TECHNIQUE: Axial diffusion-weighted imaging was obtained. Additional axial FLAIR, and axial T2 weighted images were obtained. Sagittal and axial T1-weighted imaging was obtained prior to the administration of intravenous contrast material. Additional sagittal, axial, and coronal T1-weighted imaging was obtained after the administration of gadolinium based intravenous contrast material. FINDINGS: No abnormal signal within the brain parenchyma. No abnormal enhancement identified. No restricted diffusion to indicate an acute infarct. No evidence of acute intracranial hemorrhage. No extra-axial fluid collections are identified. There is no mass effect or midline shift. Ventricular size is appropriate. Basal cisterns are patent. Visualized flow voids are normal in course, caliber, and signal. Globes and orbits are unremarkable. Paranasal sinuses and mastoid air cells are clear. IMPRESSION: Unremarkable MR examination of the brain with contrast. No restricted diffusion to indicate acute infarct. No abnormal enhancement. Electronically signed by: Matt Keller MD (04/22/2017 7:58 PM) [facility]
[2017-04-22 20:42] VITALS: BP 123/63
--- NOTE | 2017-04-23 06:18 | EKG ---
[facility] [address] [place] [address] Test Date: 2017-04-22 Test Time: 17:40:08 Pat Name: DENNIS ROMAN Department: Room: Gender: F [employer] Install[employer]: : [id number] Requested By: MAKAYLA JOHNSON Order Number: [id number] Reading MD: Nayeli Siddiqui Measurements Intervals [place] Rate: 74 P: 34 NH: 142 QRS: 8 QRSD: 96 T: 18 QT: 404 QTc: 449 Interpretive Statements SINUS RHYTHM T ABNORMALITY IN ANTEROSEPTAL LEADS Electronically Signed On 04-27-2017 15:04:05 CDT by Nayeli Siddiqui
== END 2017-04-22 20:52 | disposition home or self-care (01) ==
LOC: ER 17:23
DX: R20.2 Paresthesia of skin (principal); R53.1 Weakness; F32.9 Major depressive disorder, single episode, unspecified; J45.909 Unspecified asthma, uncomplicated; F43.10 Post-traumatic stress disorder, unspecified; M32.9 Systemic lupus erythematosus, unspecified; M79.7 Fibromyalgia; Z88.0 Allergy status to penicillin; G47.00 Insomnia, unspecified; M19.90 Unspecified osteoarthritis, unspecified site; G43.909 Migraine, unspecified, not intractable, without status migrainosus; Z90.49 Acquired absence of other specified parts of digestive tract; Z98.51 Tubal ligation status; Z88.1 Allergy status to other antibiotic agents; Z91.040 Latex allergy status
CPT/HCPCS: 36415; 70553; 80053; 81025; 85027; 93005; 96374; 96375; 99285; A9585; J2060

== ENCOUNTER 2017-05-14 16:57 | Emergency (ER) | payer OTHER ==
[~2017-05-14] VITALS: Ht 175.3 cm; Wt 127.0 kg
[2017-05-14 17:05] VITALS: BP 145/68
--- NOTE | 2017-05-14 17:15 | PHYS DOC ---
Past Medical History Past Medical History: Anxiety, Arthritis, Asthma, Depression, Fibromyalgia, Migraines, Other Additional Past Medical Histor: PTSD, INSOMNIA, BURSITIS,LUPUS Past Surgical History: Cholecystectomy, Tonsillectomy, Tubal ligation Additional Past Surgical Histo: LAPROSCOPY,MIRENA REMOVAL, TUBAL LIGATION Alcohol Use: Occasionally Drug Use: None Adult General Chief Complaint Chief Complaint: [facility] HPI Patient is a 32 year old female presents to the emergency department with a three-day history of cough. Patient was evaluated at her primary care doctor's office today and was advised to report to the outpatient radiology services for chest x-ray. Patient felt that she should come to the emergency department as this will accommodate her time schedule better. Repeat fever of 100. She is using [id number] cough and cold medications. She has no chest pain, the cough is nonproductive. Review of Systems Review of Systems Constitutional: Denies fever or chills [] Eyes: Denies change in visual acuity, redness, or eye pain [] HENT: Denies nasal congestion or sore throat [] Respiratory: Cough Cardiovascular: No additional information not addressed in HPI [] GI: Denies abdominal pain, nausea, vomiting, bloody stools or diarrhea [] : Denies dysuria or hematuria [] Musculoskeletal: Denies back pain or joint pain [] Integument: Denies rash or skin lesions [] Neurologic: Denies headache, focal weakness or sensory changes [] Endocrine: Denies polyuria or polydipsia [] Allergies Allergies Allergies Coded Allergies Type Severity Reaction Last Updated Verified Penicillins Allergy Intermediate Shortness of Air 08/17/16 Yes amoxicillin Allergy Intermediate 08/17/16 Yes latex Allergy Intermediate Rash 08/17/16 Yes Physical Exam Physical Exam Constitutional: Well developed, well nourished, no acute distress, non-toxic appearance. [] HENT: Normocephalic, atraumatic, bilateral tympanic membranes with effusions. Oropharynx moist, posterior pharynx injected. No oral exudates, nose normal. [] Eyes: PERRLA, EOMI, conjunctiva normal, no discharge. [] Neck: Normal range of motion, no tenderness, supple Cardiovascular:Heart rate regular rhythm, no murmur [] Lungs & Thorax: Diminished, rhonchi right lower posterior, clears with coughing Abdomen: Bowel sounds normal, soft, no tenderness, no masses, no pulsatile masses. [] Skin: Warm, dry, no erythema, no rash. [] Back: No tenderness, no CVA tenderness. [] Extremities: No tenderness, no cyanosis, no clubbing, ROM intact, no edema. [] Neurologic: Alert and oriented X 3, normal motor function, normal sensory function, no focal deficits noted. [] Psychologic: Affect normal, judgement normal, mood normal. [] Current Patient Data Vital Signs Vital Signs Date Time Temp Pulse Resp B/P (MAP) Pulse Ox O2 Delivery O2 Flow Rate FiO2 05/14/17 17:05 97.4 103 22 97 Room Air 97.4 EKG EKG [] Radiology/Procedures Radiology/Procedures X-ray reviewed by this provider, no acute changes [] Course & Med Decision Making Course & Med Decision Making Pertinent Labs and Imaging studies reviewed. (See chart for details) [] Dragon Disclaimer Dragon Disclaimer This electronic medical record was generated, in whole or in part, using a voice recognition dictation system. Departure Departure Impression: Primary Impression: Bronchitis Disposition: 01 HOME, SELF-CARE Condition: STABLE Referrals: PEYTON DOLAN MD (PCP) Patient Instructions: Acute Bronchitis Additional Instructions: Continue [id number] cough and cold medications as labeled as indicated. Please follow up with primary care physician in 5-7 days. Return to the emergency Department for new symptoms or concerns or worsening of current condition. Scripts Albuterol Sulfate (VENTOLIN HFA INHALER) 18 Gm Hfa.aer.ad 2 PUFF INH Q4HRS Y for COUGH, #1 INHALER 0 Refills Prov: DEVON MCCARTNEY APRN 05/14/17 Clarithromycin (BIAXIN) 500 Mg Tablet 1 TAB PO BID, #14 TAB Prov: DEVON MCCARTNEY APRN 05/14/17 Prednisone (PREDNISONE) 20 Mg Tablet 1 TAB PO DAILY, #5 TAB Prov: DEVON MCCARTNEY APRN 05/14/17 DEVON MCCARTNEY APRN May 14, 2017 17:15
[2017-05-14] MEDS ORDERED: CLAR500T3 PO (17:46)
[2017-05-14] MEDS ORDERED: VENTOLIN HFA18 GM INH (17:46)
[2017-05-14] MEDS ORDERED: PRED20TA PO (17:46)
--- NOTE | 2017-05-15 07:17 | RAD ---
Chest radiograph 2 views 05/14/2017 Clinical indication: Cough. Comparison: 08/23/2016 chest radiograph. Findings: Cardiac and mediastinal silhouettes are within normal limits. No pleural effusion, pneumothorax or focal consolidation. Impression: No acute cardiopulmonary abnormality.
== END 2017-05-14 17:55 | disposition home or self-care (01) ==
LOC: ER 16:57
DX: J40 Bronchitis, not specified as acute or chronic (principal); F41.9 Anxiety disorder, unspecified; M19.90 Unspecified osteoarthritis, unspecified site; J45.909 Unspecified asthma, uncomplicated; F32.9 Major depressive disorder, single episode, unspecified; M79.7 Fibromyalgia; G43.909 Migraine, unspecified, not intractable, without status migrainosus; F43.10 Post-traumatic stress disorder, unspecified; G47.00 Insomnia, unspecified; M32.9 Systemic lupus erythematosus, unspecified; Z88.0 Allergy status to penicillin; Z90.49 Acquired absence of other specified parts of digestive tract; Z88.1 Allergy status to other antibiotic agents; Z91.040 Latex allergy status
CPT/HCPCS: 71020; 99284-25

== ENCOUNTER → 2017-07-16 | Outpatient (CLI) | payer OTHER ==
[~2017-07-16] MED LIST changes: +CLAR500T3 PO; +NAPR-695 PO; -NAPR375T3 PO; +VENTOLIN HFA18 GM INH
--- NOTE | 2017-07-16 14:56 | KCIC ---
Three-view right ankle and three-view right foot dated 07/16/2017. No comparison available. Clinical indication: Right ankle pain. FINDINGS: 3 views right ankle show normal bony alignment. No displaced fracture. Talar dome is intact no acute osseous or articular abnormality. 3 views right foot show normal bony alignment. No displaced fracture. No acute osseous or articular abnormality. IMPRESSION: No acute findings. Electronically signed by: Riccardo Rolle MD (07/16/2017 2:53 PM) [id number]
== END | disposition home or self-care (01) ==
LOC: KCIC 13:59
PROVIDERS: ATTEND Physician Assistant Medical
DX: M25.571 Pain in right ankle and joints of right foot (principal)
CPT/HCPCS: 73610; 73630

== ENCOUNTER 2017-09-04 16:39 | Emergency (ER) | payer OTHER ==
[~2017-09-04] VITALS: Ht 175.3 cm; Wt 122.9 kg
--- NOTE | 2017-09-04 16:51 | PHYS DOC ---
Past Medical History Past Medical History: Anxiety, Arthritis, Asthma, Depression, Fibromyalgia, Migraines, Other Additional Past Medical Histor: PTSD, INSOMNIA, BURSITIS,LUPUS Past Surgical History: Cholecystectomy, Tonsillectomy, Tubal ligation Additional Past Surgical Histo: LAPROSCOPY,MIRENA REMOVAL, TUBAL LIGATION Alcohol Use: Occasionally Drug Use: None Adult General Chief Complaint Chief Complaint: NAUSEA/VOMITING/DIARRHA HPI HPI Patient is a 32 year old female presenting to the emergency department for evaluation of multiple complaints including facial pain dizziness weakness abdominal pain nausea vomiting. Patient says that she had to upper molars pulled one on each side yesterday and was sent home on hydrocodone and clindamycin. She took her medications and says that she has been having the above symptoms. Abdominal pain is diffuse and the emesis is nonbloody nonbilious with no diarrhea or constipation. She says that when she stood up after her procedure yesterday she immediately had to sit back down and says that she has felt off gait since that time. She was able to emulate to the bathroom with no difficulty and she has no focal neurologic signs or symptoms with no obvious facial swelling. She is in no obvious distress with normal vital signs. Review of Systems Review of Systems Constitutional: Denies fever or chills [] Eyes: Denies change in visual acuity, redness, or eye pain [] HENT: Denies nasal congestion or sore throat [] Respiratory: Denies cough or shortness of breath [] Cardiovascular: No additional information not addressed in HPI [] GI: + abdominal pain, nausea, vomiting. No bloody stools or diarrhea [] : Denies dysuria or hematuria [] Musculoskeletal: Denies back pain or joint pain [] Integument: Denies rash or skin lesions [] Neurologic: Denies headache, focal weakness. + dizziness sensory changes [] All other systems were reviewed and found to be within normal limits, except as documented in this note. Current Medications Current Medications Current Medications Medications (Trade) Dose Ordered Sig/Cindi Start Time Stop Time Status Last Admin Dose Admin Famotidine (Pepcid) 40 mg 1X ONCE 09/04/17 19:00 09/04/17 19:01 09/04/17 18:42 40 MG Fentanyl Citrate (Fentanyl 2ml Vial) 100 mcg 1X ONCE 09/04/17 19:00 09/04/17 19:01 09/04/17 18:42 100 MCG Fluconazole (Diflucan) 150 mg 1X ONCE 09/04/17 18:00 09/04/17 18:01 DC 09/04/17 18:06 150 MG Info (Do NOT chart on this entry -- for MONITORING) 1 each PRN DAILY PRN 09/04/17 17:15 09/06/17 17:14 Iohexol (Omnipaque 300 Mg/ml) 75 ml 1X ONCE 09/04/17 17:30 09/04/17 17:31 DC 09/04/17 17:46 60 ML Ketorolac Tromethamine (Toradol) 15 mg 1X ONCE 09/04/17 17:15 09/04/17 17:16 DC 09/04/17 17:23 15 MG Lorazepam (Ativan) 1 mg 1X ONCE 09/04/17 18:00 09/04/17 18:01 DC 09/04/17 18:06 1 MG Morphine Sulfate 5 mg 1X ONCE 09/04/17 17:15 09/04/17 17:16 DC 09/04/17 17:25 5 MG Multi-Ingredient Mouthwash/Gargle (Gi Cocktail Single Dose) 15 ml 1X ONCE 09/04/17 18:00 09/04/17 18:01 DC 09/04/17 18:10 15 ML Ondansetron HCl (Zofran) 8 mg 1X ONCE 09/04/17 17:45 09/04/17 17:46 DC 09/04/17 17:29 8 MG Potassium Chloride (Klor-Con) 40 meq 1X ONCE 09/04/17 18:00 09/04/17 18:01 DC 09/04/17 18:06 40 MEQ Sodium Chloride 1,000 ml @ 1,000 mls/hr 1X ONCE 09/04/17 17:30 09/04/17 18:29 DC 09/04/17 17:23 1,000 MLS/HR Allergies Allergies Allergies Coded Allergies Type Severity Reaction Last Updated Verified Penicillins Allergy Intermediate Shortness of Air 08/17/16 Yes amoxicillin Allergy Intermediate 08/17/16 Yes latex Allergy Intermediate Rash 08/17/16 Yes Physical Exam Physical Exam Constitutional: Well developed, well nourished, no acute distress, non-toxic appearance. [] HENT: Normocephalic, atraumatic, bilateral external ears normal, oropharynx moist, no oral exudates, nose normal. Face does not appear swollen and it appears that tooth to and 15 were pulled there is no obvious redness swelling or abscess. Eyes: PERRLA, EOMI, conjunctiva normal, no discharge. [] Neck: Normal range of motion, no tenderness, supple, no stridor. [] Cardiovascular:Heart rate regular rhythm, no murmur [] Lungs & Thorax: Bilateral breath sounds clear to auscultation [] Abdomen: Bowel sounds normal, soft, + diffuse tenderness, no rebound or guarding , no masses, no pulsatile masses. [] Skin: Warm, dry, no erythema, no rash. [] Back: No tenderness, no CVA tenderness. [] Extremities: No tenderness, no cyanosis, no clubbing, ROM intact, no edema. [] Neurologic: Alert and oriented X 3, normal motor function, normal sensory function, no focal deficits noted. [] Current Patient Data Vital Signs Vital Signs Date Time Temp Pulse Resp B/P (MAP) Pulse Ox O2 Delivery O2 Flow Rate FiO2 09/04/17 17:25 18 96 Room Air 09/04/17 16:44 98.3 82 124/68 (86) 98.3 Lab Values Laboratory Tests Test 09/04/17 16:45 09/04/17 16:55 Urine Collection Type Void Urine Color Dk yellow Urine Clarity Clear Urine pH 6.0 Urine Specific [place] >=1.030 Urine Protein 30 mg/dL (NEG-TRACE) Urine Glucose (UA) Negative mg/dL (NEG) Urine Ketones (Stick) Trace mg/dL (NEG) Urine Blood Negative (NEG) Urine Nitrite Negative (NEG) Urine Bilirubin Small (NEG) Urine Urobilinogen Dipstick 1.0 mg/dL (0.2 mg/dL) Urine Leukocyte Esterase Trace (NEG) Urine RBC 0 /HPF (0-2) Urine WBC 1-4 /HPF (0-4) Urine Squamous Epithelial Cells Many /LPF Urine Bacteria Few /HPF (0-FEW) Urine Mucus Marked /LPF Urine Yeast Present /HPF White Blood Count 12.9 x10^3/uL (4.0-11.0) H Red Blood Count 4.53 x10^6/uL (3.50-5.40) Hemoglobin 13.8 g/dL (12.0-15.5) Hematocrit 40.7 % (36.0-47.0) Mean Corpuscular Volume 90 fL (79-100) Mean Corpuscular Hemoglobin 30 pg (25-35) Mean Corpuscular Hemoglobin Concent 34 g/dL (31-37) Red Cell Distribution Width 14.3 % (11.5-14.5) Platelet Count 234 x10^3/uL (140-400) Neutrophils (%) (Auto) 64 % (31-73) Lymphocytes (%) (Auto) 25 % (24-48) Monocytes (%) (Auto) 9 % (0-9) Eosinophils (%) (Auto) 2 % (0-3) Basophils (%) (Auto) 1 % (0-3) Neutrophils # (Auto) 8.3 x10^3uL (1.8-7.7) H Lymphocytes # (Auto) 3.2 x10^3/uL (1.0-4.8) Monocytes # (Auto) 1.1 x10^3/uL (0.0-1.1) Eosinophils # (Auto) 0.2 x10^3/uL (0.0-0.7) Basophils # (Auto) 0.1 x10^3/uL (0.0-0.2) Sodium Level 138 mmol/L (136-145) Potassium Level 3.4 mmol/L (3.5-5.1) L Chloride Level 102 mmol/L (98-107) Carbon Dioxide Level 29 mmol/L (21-32) Anion Gap 7 (6-14) Blood Urea Nitrogen 11 mg/dL (7-20) Creatinine 1.1 mg/dL (0.6-1.0) H Estimated GFR (Cockcroft-Gault) 58.3 BUN/Creatinine Ratio 10 (6-20) Glucose Level 101 mg/dL (70-99) H Calcium Level 9.1 mg/dL (8.5-10.1) Total Bilirubin 0.3 mg/dL (0.2-1.0) Aspartate Amino Transferase (AST) 15 U/L (15-37) Alanine Aminotransferase (ALT) 24 U/L (14-59) Alkaline Phosphatase 93 U/L (46-116) Total Protein 7.7 g/dL (6.4-8.2) Albumin 3.7 g/dL (3.4-5.0) Albumin/Globulin Ratio 0.9 (1.0-1.7) L Lipase 83 U/L (73-393) Laboratory Tests 09/04/17 16:55 Laboratory Tests 09/04/17 16:55 EKG EKG [] Radiology/Procedures Radiology/Procedures CT ABD PELV W/ IV CONTRST ONLY dated 09/04/2017 5:50 PM Indication:extreme bilateral abd pain with nausea, vomiting and diarrhea
Omni 300 60ml reduced dose Comparison: No comparison is available. Technique: CT images were performed through the abdomen and pelvis using an infusion of Omnipaque 300. One or more of the following individualized dose reduction techniques were utilized for this examination: 1. Automated exposure control 2. Adjustment of the mA and/or kV according to patient size 3. Use of iterative reconstruction technique Findings: The lung bases are clear. The liver and spleen are homogeneous in density and normal in configuration. Both kidneys enhance with contrast. There is a mass at the upper pole of the left kidney that measures about 3.9 cm mediolaterally, 3.8 cm AP, and 4.9 cm craniocaudally. This has mixed internal density averaging around 41 Hounsfield units. Kidneys otherwise appear normal. There is no evidence of obstruction. The adrenal glands are not enlarged. The pancreas appears normal. No retroperitoneal or mesenteric adenopathy is seen. There is no apparent abdominal soft tissue mass or inflammatory process. A normal appendix is seen extending superiorly from the cecum. Images through the pelvis show no abnormality of the distal ureters or bladder. The bladder was not well-distended. No pelvic or inguinal adenopathy is seen. There is no apparent pelvic soft tissue mass or inflammatory process. IMPRESSION: There is a likely solid left renal mass. Renal protocol CT or MRI with and without contrast would be useful for further evaluation. No acute abnormality or definite cause for pain is seen. Results were discussed with the ER physician. Electronically signed by: Renita Nino Jr., MD (09/04/2017 6:20 PM) [facility] DICTATED and SIGNED BY: RENITA NINO Jr, MD DATE: 09/04/[address] HEAD AND MAXILLOFACIAL WO dated 09/04/2017 5:56 PM Indication:. Jaw painrecent dental work, jaw pain, and dizziness. Comparison: No comparison is available. Technique: Contiguous axial imaging the head was performed from skull base to vertex. No contrast administered. In addition, axial imaging the maxillary facial bones obtained with thin cut coronal and sagittal reconstruction. Study was performed in conjunction with abdomen and pelvic CT. One or more of the following individualized dose reduction techniques were utilized for this examination: 1. Automated exposure control 2. Adjustment of the mA and/or kV according to patient size 3. Use of iterative reconstruction technique Findings: Ventricles and sulci are within normal limits for age. No midline shift or mass effect. Evaluation for hemorrhage is limited due to the presence of contrast material used on recent abdominal pelvic CT. No abnormal enhancement or mass. No extra-axial collection. Posterior fossa and brainstem unremarkable. No acute calvarial abnormality. Images of the maxillofacial bones show moderate mucosal thickening of the right maxillary sinus with subtotal opacification and prominent air-fluid level. There is also mild to moderate mucosal thickening of the bilateral ethmoid air cells with occlusion of the right ostiomeatal unit. Left ostiomeatal unit is patent. There is hypertrophy of the bilateral nasal turbinates. There are radiolucent defects of the bilateral upper molar and premolar teeth. Radiolucency from the premolar defect on the right may extend to the inferior wall the right maxilla sinus. Visualized soft tissue structures are unremarkable. No soft tissue fluid collection to suggest abscess. There are borderline enlarged bilateral jugulodigastric lymph nodes, nonspecific. IMPRESSION HEAD: 1. No evidence of acute intracranial abnormality. 2. Evaluation for intracranial hemorrhage is limited due to the presence of contrast material. IMPRESSION MAXILLOFACIAL: 1. Radiolucent defects at the bilateral upper molar/premolar teeth, likely related to recent tooth extraction. Upper radiolucent defect on the right may communicate with the right maxillary sinus. 2. Right-sided sinus disease with air-fluid level in the maxillary sinus. Acute sinusitis is possible. There is occlusion of the right ostiomeatal unit. Electronically signed by: Riccardo Rolle MD (09/04/2017 6:24 PM) [facility] DICTATED and SIGNED BY: RICCARDO ROLLE MD DATE: 09/04/171813 Course & Med Decision Making Course & Med Decision Making Patient has residual pain in her face after having her teeth pulled but I do not see anything lately abnormal and physical exam. She is having abdominal pain nausea vomiting likely from being on the hydrocodone and clindamycin but will check labs CT treat symptoms and reassess. Labs are unremarkable except for mild leukocytosis and mild hypokalemia. She was given multiple medications for pain and nausea and her pain and nausea since resolved and she can tolerate oral fluids and pills with no difficulty. I discussed at length with her the CT findings including the sinusitis on head CT. There is no abscess or drainable fluid collection so she can be safely treated with clindamycin as she is ready on. As far as the abdomen and pelvis CT showed no acute findings but she did have a left renal mass that needs further workup to rule out renal cell carcinoma. She is quite concerned about this and is requesting to have the further workup including biopsy here today but I explained with her at length that this is not a possibility. I did speak with her primary care physician Dr. Dolan and he said that he will see her Friday and set up further follow-up for this incidental finding. Given patient appears well with normal vital signs benign physical exam and workup she'll be discharged in stable condition with Zofran for nausea and vomiting and told to drink plenty of fluids including water and Gatorade and eat soft nonirritating foods such as bananas soups and Jell-O. Patient aware and agreeable with plan for discharge and verbalized understanding of the need for short-term follow-up and strict ED return precautions discussed including worsening pain fevers vomiting or other general concerns. Dragon Disclaimer Dragon Disclaimer This electronic medical record was generated, in whole or in part, using a voice recognition dictation system. Departure Departure Impression: Primary Impression: Sinusitis Additional Impressions: Renal mass Leukocytosis Nausea & vomiting Referrals: PEYTON DOLAN MD (PCP) Patient Instructions: Sinusitis Additional Instructions: MAKE SURE YOU TAKE YOUR CLINDAMYCIN PRESCRIBED. DRINK PLENTY OF FLUIDS INCLUDING WATER AND GATORADE. KEEP YOUR FOLLOW UP WITH DR. DOLAN ON FRIDAY AND COME BACK TO THE ED SOONER WITH ANY NEW OR WORSENING PAIN, FEVERS, VOMITING , OR OTHER GENERAL CONCERNS. Scripts Ondansetron (ZOFRAN ODT) 4 Mg Tab.rapdis 4 MG PO BID Y for NAUSEA/VOMITING, #14 TAB Prov: PEYTON ANAND DO 09/04/17 Problem Qualifiers PEYTON ANAND DO Sep 04, 2017 16:51
[2017-09-04 17:05] LABS: BASO # 0.1 x10^3/uL (0.0-0.2); BASO % 1 % (0-3); EOS % 2 % (0-3); HEMATOCRIT 40.7 % (36.0-47.0); HEMOGLOBIN 13.8 g/dL (12.0-15.5); LYMPH # 3.2 x10^3/uL (1.0-4.8); LYMPH % 25 % (24-48); MEAN CORPUSCULAR HEMOGLOBIN 30 pg (25-35); MEAN CORPUSCULAR HGB CONC 34 g/dL (31-37); MEAN CORPUSCULAR VOLUME 90 fL (79-100); MONO % 9 % (0-9); NEUT % 64 % (31-73); PLATELET COUNT 234 x10^3/uL (140-400); RED BLOOD COUNT 4.53 x10^6/uL (3.50-5.40); RED CELL DISTRIBUTION WIDTH 14.3 % (11.5-14.5); WHITE BLOOD COUNT 12.9 x10^3/uL (4.0-11.0)
[2017-09-04 17:06] LABS: BILIRUBIN,URINE SMALL (NEG); GLUCOSE,URINE NEGATIVE (NEG); NITRITE,URINE NEGATIVE (NEG); PROTEIN,URINE 30 mg/dL (NEG-TRACE)
[2017-09-04 17:15] LABS: CREATININE 1.1 mg/dL (0.6-1.0); GFR 58.3; POTASSIUM 3.4 mmol/L (3.5-5.1)
[2017-09-04] MEDS ORDERED: MORPHINE SULFATE 10 MG/ML VIAL. IV ONE (17:15)
[2017-09-04] MEDS ORDERED: CONTRAST GIVEN MC PRN (17:15)
[2017-09-04] MEDS ORDERED: KETOROLAC 15 MG/ML VIAL. IV ONE (17:15)
[2017-09-04] MEDS ORDERED: ONDANSETRON PF 4 MG/2 ML VIAL. ONE (17:18)
[2017-09-04 17:21] LABS: ALBUMIN 3.7 g/dL (3.4-5.0); ALBUMIN/GLOBULIN RATIO 0.9 (1.0-1.7); TOTAL BILIRUBIN 0.3 mg/dL (0.2-1.0); TOTAL PROTEIN 7.7 g/dL (6.4-8.2)
[2017-09-04 17:23] LABS: RBC,URINE 0 /HPF (0-2)
[2017-09-04 17:24] LABS: BACTERIA,URINE FEW /HPF (0-FEW); SQUAMOUS EPITHELIAL CELL,UR MANY /LPF; YEAST,URINE PRESENT /HPF
[2017-09-04 17:26] LABS: CALCIUM 9.1 mg/dL (8.5-10.1)
[2017-09-04] MEDS ORDERED: IV NORMAL SALINE 1000ML BAG 1,000 ML IV ONE (17:30)
[2017-09-04] MEDS ORDERED: IOHEXOL 300 MG/ML 100ML VIAL. IV ONE (17:30)
[2017-09-04] MEDS ORDERED: ONDANSETRON PF 4 MG/2 ML VIAL. IV ONE (17:45)
[2017-09-04] MEDS ORDERED: POTASSIUM CHLORIDE 20 MEQ TABLET.ER. PO ONE (18:00)
[2017-09-04] MEDS ORDERED: FLUCONAZOLE 100 MG TABLET. PO ONE (18:00)
[2017-09-04] MEDS ORDERED: LIDO:MAALOX:DONNATAL 1:1:1 15 ML SINGLE DOSE SWSW ONE (18:00)
--- NOTE | 2017-09-04 18:23 | RAD ---
CT ABD PELV W/ IV CONTRST ONLY dated 09/04/2017 5:50 PM Indication:extreme bilateral abd pain with nausea, vomiting and diarrhea
Omni 300 60ml reduced dose Comparison: No comparison is available. Technique: CT images were performed through the abdomen and pelvis using an infusion of Omnipaque 300. One or more of the following individualized dose reduction techniques were utilized for this examination: 1. Automated exposure control 2. Adjustment of the mA and/or kV according to patient size 3. Use of iterative reconstruction technique Findings: The lung bases are clear. The liver and spleen are homogeneous in density and normal in configuration. Both kidneys enhance with contrast. There is a mass at the upper pole of the left kidney that measures about 3.9 cm mediolaterally, 3.8 cm AP, and 4.9 cm craniocaudally. This has mixed internal density averaging around 41 Hounsfield units. Kidneys otherwise appear normal. There is no evidence of obstruction. The adrenal glands are not enlarged. The pancreas appears normal. No retroperitoneal or mesenteric adenopathy is seen. There is no apparent abdominal soft tissue mass or inflammatory process. A normal appendix is seen extending superiorly from the cecum. Images through the pelvis show no abnormality of the distal ureters or bladder. The bladder was not well-distended. No pelvic or inguinal adenopathy is seen. There is no apparent pelvic soft tissue mass or inflammatory process. IMPRESSION: There is a likely solid left renal mass. Renal protocol CT or MRI with and without contrast would be useful for further evaluation. No acute abnormality or definite cause for pain is seen. Results were discussed with the ER physician. Electronically signed by: Flaco Nino Jr., MD (09/04/2017 6:20 PM) [facility]
--- NOTE | 2017-09-04 18:28 | RAD ---
CT HEAD AND MAXILLOFACIAL WO dated 09/04/2017 5:56 PM Indication:. Jaw painrecent dental work, jaw pain, and dizziness. Comparison: No comparison is available. Technique: Contiguous axial imaging the head was performed from skull base to vertex. No contrast administered. In addition, axial imaging the maxillary facial bones obtained with thin cut coronal and sagittal reconstruction. Study was performed in conjunction with abdomen and pelvic CT. One or more of the following individualized dose reduction techniques were utilized for this examination: 1. Automated exposure control 2. Adjustment of the mA and/or kV according to patient size 3. Use of iterative reconstruction technique Findings: Ventricles and sulci are within normal limits for age. No midline shift or mass effect. Evaluation for hemorrhage is limited due to the presence of contrast material used on recent abdominal pelvic CT. No abnormal enhancement or mass. No extra-axial collection. Posterior fossa and brainstem unremarkable. No acute calvarial abnormality. Images of the maxillofacial bones show moderate mucosal thickening of the right maxillary sinus with subtotal opacification and prominent air-fluid level. There is also mild to moderate mucosal thickening of the bilateral ethmoid air cells with occlusion of the right ostiomeatal unit. Left ostiomeatal unit is patent. There is hypertrophy of the bilateral nasal turbinates. There are radiolucent defects of the bilateral upper molar and premolar teeth. Radiolucency from the premolar defect on the right may extend to the inferior wall the right maxilla sinus. Visualized soft tissue structures are unremarkable. No soft tissue fluid collection to suggest abscess. There are borderline enlarged bilateral jugulodigastric lymph nodes, nonspecific. IMPRESSION HEAD: 1. No evidence of acute intracranial abnormality. 2. Evaluation for intracranial hemorrhage is limited due to the presence of contrast material. IMPRESSION MAXILLOFACIAL: 1. Radiolucent defects at the bilateral upper molar/premolar teeth, likely related to recent tooth extraction. Upper radiolucent defect on the right may communicate with the right maxillary sinus. 2. Right-sided sinus disease with air-fluid level in the maxillary sinus. Acute sinusitis is possible. There is occlusion of the right ostiomeatal unit. Electronically signed by: Riccardo Rolle MD (09/04/2017 6:24 PM) [facility]
[2017-09-04] MEDS ORDERED: ONDA4TAB10 PO (18:47)
[2017-09-04 18:59] VITALS: BP 115/64
[2017-09-04] MEDS ORDERED: fentaNYL PF VIAL 100 MCG/2 ML VIAL IV ONE (19:00)
[2017-09-04] MEDS ORDERED: FAMOTIDINE 20 MG TABLET. PO ONE (19:00)
[2017-09-05] MEDS ORDERED: IBUP-1007 PO (19:10)
== END 2017-09-04 19:00 | disposition home or self-care (01) ==
LOC: ER 16:39
DX: J32.9 Chronic sinusitis, unspecified (principal); N28.89 Other specified disorders of kidney and ureter; D72.829 Elevated white blood cell count, unspecified; R11.2 Nausea with vomiting, unspecified; E87.6 Hypokalemia; R10.84 Generalized abdominal pain; F41.9 Anxiety disorder, unspecified; M19.90 Unspecified osteoarthritis, unspecified site; J45.909 Unspecified asthma, uncomplicated; F32.9 Major depressive disorder, single episode, unspecified; M79.7 Fibromyalgia; M32.9 Systemic lupus erythematosus, unspecified; F43.10 Post-traumatic stress disorder, unspecified; G43.909 Migraine, unspecified, not intractable, without status migrainosus; G47.00 Insomnia, unspecified; Z90.49 Acquired absence of other specified parts of digestive tract; Z98.51 Tubal ligation status; Z88.1 Allergy status to other antibiotic agents; Z91.040 Latex allergy status; Z88.0 Allergy status to penicillin
CPT/HCPCS: 36415; 70450; 70486; 74177; 80053; 81001; 83690; 85025; 87086; 96361; 96374; 96375; 99285; J1885; J2060; J2270; J2405; J3010; J7030; Q9967

== ENCOUNTER 2017-09-05 16:45 | Emergency (ER) | payer OTHER ==
[~2017-09-05] VITALS: Ht 175.3 cm; Wt 122.9 kg
[~2017-09-05 16:45] MED LIST changes: +ONDA4TAB10 PO
[2017-09-05 17:48] LABS: BASO # 0.1 x10^3/uL (0.0-0.2); BASO % 1 % (0-3); EOS % 3 % (0-3); HEMATOCRIT 40.7 % (36.0-47.0); HEMOGLOBIN 13.8 g/dL (12.0-15.5); LYMPH # 3.4 x10^3/uL (1.0-4.8); LYMPH % 26 % (24-48); MEAN CORPUSCULAR HEMOGLOBIN 31 pg (25-35); MEAN CORPUSCULAR HGB CONC 34 g/dL (31-37); MEAN CORPUSCULAR VOLUME 91 fL (79-100); MONO % 7 % (0-9); NEUT % 63 % (31-73); PLATELET COUNT 248 x10^3/uL (140-400); RED BLOOD COUNT 4.49 x10^6/uL (3.50-5.40); RED CELL DISTRIBUTION WIDTH 14.5 % (11.5-14.5); WHITE BLOOD COUNT 12.9 x10^3/uL (4.0-11.0)
[2017-09-05 18:05] LABS: CALCIUM 8.9 mg/dL (8.5-10.1); GFR 65.1; POTASSIUM 3.4 mmol/L (3.5-5.1)
[2017-09-05 18:06] LABS: BILIRUBIN,URINE NEGATIVE (NEG); GLUCOSE,URINE NEGATIVE (NEG); NITRITE,URINE NEGATIVE (NEG); PH,URINE 8.5; PROTEIN,URINE NEGATIVE (NEG-TRACE)
[2017-09-05 18:15] LABS: BACTERIA,URINE 0 /HPF (0-FEW); RBC,URINE 0 /HPF (0-2); SQUAMOUS EPITHELIAL CELL,UR MOD /LPF; YEAST,URINE PRESENT /HPF
[2017-09-05 18:19] LABS: ALBUMIN 3.7 g/dL (3.4-5.0); ALBUMIN/GLOBULIN RATIO 0.9 (1.0-1.7); TOTAL BILIRUBIN 0.3 mg/dL (0.2-1.0); TOTAL PROTEIN 7.8 g/dL (6.4-8.2)
[2017-09-05] MEDS ORDERED: ORPHENADRINE CITRATE 60 MG/2 ML VIAL. IV ONE (18:30)
[2017-09-05] MEDS ORDERED: HYDROmorphone 2 MG/ML VIAL IV ONE (18:30)
[2017-09-05] MEDS ORDERED: KETOROLAC 30 MG/ML INJ. IV ONE (18:30)
[2017-09-05] MEDS ORDERED: ONDANSETRON PF 4 MG/2 ML VIAL. IV ONE (18:30)
[2017-09-05 18:37] VITALS: BP 125/58
[2017-09-05] MEDS ORDERED: IBUP-1007 PO (19:10)
--- NOTE | 2017-09-05 19:11 | PHYS DOC ---
Past Medical History Past Medical History: Anxiety, Arthritis, Asthma, Depression, Fibromyalgia, Migraines, Other Additional Past Medical Histor: PTSD, INSOMNIA, BURSITIS, Past Surgical History: Cholecystectomy, Tonsillectomy, Tubal ligation Additional Past Surgical Histo: LAPROSCOPY,MIRENA REMOVAL, dental Alcohol Use: Occasionally Drug Use: None Adult General Chief Complaint Chief Complaint: FLANK PAIN HPI HPI Patient is a 32 year old female who presents to the ER today complaining of left flank pain. Patient was just here yesterday with similar complaint. At that time she had a full workup done. Patient had a CT scan of the abdomen and pelvis as well as CT scan of her head. Patient reports that she was has pain from the side of her face all the way down to her knees. Patient's CT scan of the abdomen pelvis yesterday revealed a possible renal mass that the patient is scheduled to follow-up with her primary care physician on Friday for further consultation and referrals. Patient denies any fevers shakes chills. Patient reports she's had nausea and vomiting 3 today. Patient reports 3 loose bowel movements today. Patient is also complaining of frequency and urgency. Patient' s last menstrual period was one month ago. Patient has any vaginal discharge. Patient reports that the pain increases her left flank whenever she rotates her torso or tries to bend and pick something up. Patient reports pain is constant and is always present but times certain things that she does certain movements make the pain worse. Patient denies any change with meals. Review of systems: Constitutional: Denies fever or chills Eyes: Denies change in visual acuity, redness, or eye pain HENT: Denies nasal congestion or sore throat Respiratory: Denies cough or shortness of breath All other systems were reviewed and found to be within normal limits, except as documented in this note. Physical exam: Constitutional: Well developed, well nourished, no acute distress, non-toxic appearance. HENT: Normocephalic, atraumatic, bilateral external ears normal, nose normal. Eyes: PERRLA, EOMI, conjunctiva normal, no discharge. Neck: Normal range of motion, no tenderness, supple, no stridor. Cardiovascular: Heart rate regular rhythm, Lungs & Thorax: Bilateral breath sounds clear to auscultation Abdomen: No abdominal distention. Skin: Warm, dry, no erythema, no rash. Back: Normal spinal curvature. Patient was 100% reproducible tenderness to palpation to her left flank region. Pain is reproducible with bending over. Patient is reproducible with twisting her torso. Pain is reproducible with palpation. Patient does not present with any signs or symptoms of be consistent with retroperitonitis. There is no erythema or rash to her back. Extremities: No tenderness, no cyanosis, no clubbing, ROM intact, no edema. Neurologic: Alert and oriented X 3, normal motor function, normal sensory function, no focal deficits noted. Psychologic: Affect normal, judgement normal, mood normal. Labs and workup from yesterday's evaluation of been reviewed by me including the CT scan and the patient's follow-up instructions with her primary care physician. Assessment and plan: 1. This is a 32-year-old female who presents to the ER today complaining of pain from the top of her head on the way down to her knees. Patient reports her greatest discomfort in her left flank region. Patient was recently here yesterday for identical complaint and had a negative workup. Patient's workup did not reveal any acute pathology however there was a mass to her left kidney that is in the process of being worked up currently by her primary care physician. Yesterday's discharge instructions included patient to follow-up with her primary care physician for outpatient referral and resuming her evaluation of her pain. I have discussed with the patient her expectations regarding today's visit and the patient's expectations today are that we figure out what is causing her discomfort. I had a long conversation with the patient regarding her expectations especially in light of a normal CT scan yesterday that did not reveal any acute cause of her discomfort. I have offered the the patient adequate analgesia in the ER and she has been given IV pain meds, nonsteroidals, muscle relaxants to assist her with her discomfort. Upon reevaluation at 7 PM the patient is resting comfortably in her room and was watching TV no acute distress. Patient's vital signs remained normal throughout her entire ER visit. Patient does not appear to be tachycardic or diaphoretic at any time. I discussed with the patient that we will need to resume with the plan as outlined by the doctor saw her yesterday for her to follow up with her primary care physician on Friday for further referrals to figure out the cause of her discomfort. Patient be discharged home to continue her [place], she has baclofen home, and ibuprofen. Current Medications Current Medications Current Medications Medications (Trade) Dose Ordered Sig/Cindi Start Time Stop Time Status Last Admin Dose Admin Hydromorphone HCl (Dilaudid) 0.5 mg 1X ONCE 09/05/17 18:30 09/05/17 18:31 DC 09/05/17 18:35 0.5 MG Ketorolac Tromethamine (Toradol) 30 mg 1X ONCE 09/05/17 18:30 09/05/17 18:31 DC 09/05/17 18:32 30 MG Ondansetron HCl (Zofran) 4 mg 1X ONCE 09/05/17 18:30 09/05/17 18:31 DC 09/05/17 18:31 4 MG Orphenadrine Citrate (Norflex) 30 mg 1X ONCE 09/05/17 18:30 09/05/17 18:31 DC 09/05/17 18:33 30 MG Allergies Allergies Allergies Coded Allergies Type Severity Reaction Last Updated Verified Penicillins Allergy Intermediate Shortness of Air 08/17/16 Yes amoxicillin Allergy Intermediate 08/17/16 Yes latex Allergy Intermediate Rash 08/17/16 Yes Current Patient Data Vital Signs Vital Signs Date Time Temp Pulse Resp B/P (MAP) Pulse Ox O2 Delivery O2 Flow Rate FiO2 09/05/17 18:37 64 13 125/58 (80) 94 Room Air 09/05/17 17:10 98.3 98.3 Lab Values Laboratory Tests Test 09/05/17 17:20 White Blood Count 12.9 x10^3/uL (4.0-11.0) H Red Blood Count 4.49 x10^6/uL (3.50-5.40) Hemoglobin 13.8 g/dL (12.0-15.5) Hematocrit 40.7 % (36.0-47.0) Mean Corpuscular Volume 91 fL (79-100) Mean Corpuscular Hemoglobin 31 pg (25-35) Mean Corpuscular Hemoglobin Concent 34 g/dL (31-37) Red Cell Distribution Width 14.5 % (11.5-14.5) Platelet Count 248 x10^3/uL (140-400) Neutrophils (%) (Auto) 63 % (31-73) Lymphocytes (%) (Auto) 26 % (24-48) Monocytes (%) (Auto) 7 % (0-9) Eosinophils (%) (Auto) 3 % (0-3) Basophils (%) (Auto) 1 % (0-3) Neutrophils # (Auto) 8.2 x10^3uL (1.8-7.7) H Lymphocytes # (Auto) 3.4 x10^3/uL (1.0-4.8) Monocytes # (Auto) 0.9 x10^3/uL (0.0-1.1) Eosinophils # (Auto) 0.4 x10^3/uL (0.0-0.7) Basophils # (Auto) 0.1 x10^3/uL (0.0-0.2) Urine Color Yellow Urine Clarity Clear Urine pH 8.5 Urine Specific [place] 1.025 Urine Protein Negative mg/dL (NEG-TRACE) Urine Glucose (UA) Negative mg/dL (NEG) Urine Ketones (Stick) 15 mg/dL (NEG) Urine Blood Negative (NEG) Urine Nitrite Negative (NEG) Urine Bilirubin Negative (NEG) Urine Urobilinogen Dipstick 1.0 mg/dL (0.2 mg/dL) Urine Leukocyte Esterase Trace (NEG) Urine RBC 0 /HPF (0-2) Urine WBC 1-4 /HPF (0-4) Urine Squamous Epithelial Cells Mod /LPF Urine Amorphous Sediment Present /HPF Urine Bacteria 0 /HPF (0-FEW) Urine Mucus Mod /LPF Urine Yeast Present /HPF Sodium Level 140 mmol/L (136-145) Potassium Level 3.4 mmol/L (3.5-5.1) L Chloride Level 104 mmol/L (98-107) Carbon Dioxide Level 28 mmol/L (21-32) Anion Gap 8 (6-14) Blood Urea Nitrogen 11 mg/dL (7-20) Creatinine 1.0 mg/dL (0.6-1.0) Estimated GFR (Cockcroft-Gault) 65.1 BUN/Creatinine Ratio 11 (6-20) Glucose Level 91 mg/dL (70-99) Calcium Level 8.9 mg/dL (8.5-10.1) Total Bilirubin 0.3 mg/dL (0.2-1.0) Aspartate Amino Transferase (AST) 22 U/L (15-37) Alanine Aminotransferase (ALT) 31 U/L (14-59) Alkaline Phosphatase 107 U/L (46-116) Total Protein 7.8 g/dL (6.4-8.2) Albumin 3.7 g/dL (3.4-5.0) Albumin/Globulin Ratio 0.9 (1.0-1.7) L Lipase 92 U/L (73-393) Laboratory Tests 09/05/17 17:20 Laboratory Tests 09/05/17 17:20 EKG EKG [] Radiology/Procedures Radiology/Procedures [] Course & Med Decision Making Course & Med Decision Making Pertinent Labs and Imaging studies reviewed. (See chart for details) [] Dragon Disclaimer Dragon Disclaimer This electronic medical record was generated, in whole or in part, using a voice recognition dictation system. Departure Departure Impression: Primary Impression: Left flank pain Additional Impression: Left renal mass Disposition: HOME, SELF-CARE Condition: IMPROVED Referrals: PEYTON DOLAN MD (PCP) Patient Instructions: Flank Pain Additional Instructions: Your CT scan of her abdomen and pelvis yesterday revealed a possible kidney mass. This might be the culprit that might be causing her abdominal pain and flank pain. You'll need to follow-up with her primary care physician as instructed yesterday on Friday said they can be adequately referrals to see specialists to rule out cancer of the kidney. They will also need to help you with the culprit that the pain that you've been experiencing. In the meantime please continue taking her [place], baclofen, and we will add ibuprofen to her pain medicine regimen. Scripts Ibuprofen (IBUPROFEN) 600 Mg Tablet 600 MG PO PRN Q6HRS Y for PAIN, #20 TAB Prov: SHY ENGLE MD 09/05/17 Problem Qualifiers SHY ENGLE MD Sep 05, 2017 19:11
== END 2017-09-05 19:27 | disposition home or self-care (01) ==
LOC: ER 16:45
DX: N28.89 Other specified disorders of kidney and ureter (principal); M79.7 Fibromyalgia; G43.909 Migraine, unspecified, not intractable, without status migrainosus; J45.909 Unspecified asthma, uncomplicated; F41.9 Anxiety disorder, unspecified; F32.9 Major depressive disorder, single episode, unspecified; M19.90 Unspecified osteoarthritis, unspecified site; F43.10 Post-traumatic stress disorder, unspecified; Z90.49 Acquired absence of other specified parts of digestive tract; Z98.51 Tubal ligation status; Z91.040 Latex allergy status; Z88.0 Allergy status to penicillin; Z88.1 Allergy status to other antibiotic agents
CPT/HCPCS: 36415; 80053; 81001; 83690; 85025; 87086; 96374; 96375; 99284; J1170; J1885; J2360; J2405

== ENCOUNTER → 2017-09-09 | Outpatient (CLI) | payer OTHER ==
[2017-09-05 18:37] VITALS: BP 125/58
[~2017-09-09] MED LIST changes: +GADOBUTROL 10 MMOL/10 ML VIAL IV ONE; +IBUP-1007 PO
--- NOTE | 2017-09-09 15:37 | KCIC ---
MRI abdomen with and without contrast dated 09/09/2017. Comparison made to CT dated 09/04/2017. Clinical indication: Evaluate left renal mass seen on recent CT. TECHNIQUE: Routine multiplanar multisequence MR imaging of abdomen performed with and without the administration of 12 cc Gadavist. FINDINGS: Again noted is a heterogeneous enhancing mass at the upper pole of left kidney lesion measures approximately 3.8 x 3.9 x 5.4 cm AP, transverse and craniocaudal dimension. There is inferior extension to the renal hilum with possible involvement of the upper pole calyx. No evidence of renal vein or IVC invasion. The lesion abuts the posterior margin of the pancreatic tail. There is some hypointense signal in the lesion on the gradient images suggesting cytoplasmic fat or hemorrhagic byproducts. The right kidney is unremarkable. No hydronephrosis. No retroperitoneal or mesenteric lymphadenopathy. Liver is homogeneous. No apparent hepatic mass. Biliary tree normal in caliber. The gallbladder is surgically absent. Spleen is normal in size. Pancreas, adrenal glands unremarkable. No ascites. IMPRESSION: 1. Heterogeneous enhancing solid mass at the upper pole left kidney, consistent with benign or malignant renal neoplasm. Hypointense signal on the out of phase gradient images suggests internal cytoplasmic fat or hemorrhagic byproducts. Clear cell carcinoma is a possibility. 2. Possible involvement of the upper pole calyx on the left. No evidence of renal vein invasion or IVC invasion. Electronically signed by: Riccardo Rolle MD (09/09/2017 3:34 PM) [facility]
== END | disposition home or self-care (01) ==
LOC: KCIC MRI 13:16
PROVIDERS: ATTEND Physician Assistant Medical
DX: N28.89 Other specified disorders of kidney and ureter (principal)
CPT/HCPCS: 74183; A9585

== ENCOUNTER 2017-11-11 22:42 | Emergency (ER) | payer OTHER ==
[2017-11-11] MEDS: fentaNYL PF VIAL 100 MCG/2 ML VIAL IV ×4 (23:08→23:30)
[2017-11-11] MEDS: ONDANSETRON PF 4 MG/2 ML VIAL. IV ×2 (23:08)
[2017-11-11] MEDS: IV NORMAL SALINE 1000ML BAG 1,000 ML IV ×2 (23:09)
[2017-11-11 23:20] LABS: ADD MAN DIFF? NO
[2017-11-11 23:24] LABS: BASO # 0.1 x10^3/uL (0.0-0.2); BASO % 1 % (0-3); EOS # 0.2 x10^3/uL (0.0-0.7); EOS % 2 % (0-3); HEMATOCRIT 32.4 % (36.0-47.0); LYMPH # 1.5 x10^3/uL (1.0-4.8); LYMPH % 19 % (24-48); MEAN CORPUSCULAR HEMOGLOBIN 31 pg (25-35); MEAN CORPUSCULAR HGB CONC 34 g/dL (31-37); MEAN CORPUSCULAR VOLUME 91 fL (79-100); MONO # 0.8 x10^3/uL (0.0-1.1); MONO % 10 % (0-9); NEUT # 5.2 x10^3uL (1.8-7.7); NEUT % 68 % (31-73); PLATELET COUNT 283 x10^3/uL (140-400); RED BLOOD COUNT 3.58 x10^6/uL (3.50-5.40); RED CELL DISTRIBUTION WIDTH 14.5 % (11.5-14.5); WHITE BLOOD COUNT 7.7 x10^3/uL (4.0-11.0)
[2017-11-11 23:35] LABS: ANION GAP 9 (6-14); BLOOD UREA NITROGEN 13 mg/dL (7-20); BUN/CREATININE RATIO 14 (6-20); CALCIUM 8.6 mg/dL (8.5-10.1); CARBON DIOXIDE 27 mmol/L (21-32); CHLORIDE 99 mmol/L (98-107); CREATININE 0.9 mg/dL (0.6-1.0); GFR 73.5; GLUCOSE 95 mg/dL (70-99); POTASSIUM 3.1 mmol/L (3.5-5.1); SODIUM 135 mmol/L (136-145)
[2017-11-11 23:41] LABS: ALBUMIN 2.8 g/dL (3.4-5.0); ALBUMIN/GLOBULIN RATIO 0.7 (1.0-1.7); ALK PHOS 122 U/L (46-116); ALT (SGPT) 46 U/L (14-59); AST (SGOT) 20 U/L (15-37); LIPASE 124 U/L (73-393); TOTAL BILIRUBIN 0.2 mg/dL (0.2-1.0); TOTAL PROTEIN 6.9 g/dL (6.4-8.2)
[2017-11-11 23:56] LABS: LACTIC ACID 0.8 mmol/L (0.4-2.0)
[2017-11-12 00:28] LABS: D-DIMER 2.65 ug/mlFEU (0.00-0.50)
[2017-11-12 00:43] LABS: TROPONINI < 0.017 ng/mL (0.000-0.055)
[2017-11-12 00:52] LABS: CKMB MASS < 0.5 ng/mL (0.0-3.6)
[2017-11-12 00:53] LABS: CKMB INDEX 0.8 % (0-4); CREATINE KINASE 66 U/L (26-192)
[2017-11-12 01:21] LABS: BILIRUBIN,URINE NEGATIVE (NEG); CLARITY,URINE CLEAR; COLOR,URINE YELLOW; GLUCOSE,URINE NEGATIVE (NEG); NITRITE,URINE NEGATIVE (NEG); PROTEIN,URINE NEGATIVE (NEG-TRACE)
[2017-11-12] MEDS: IV NORMAL SALINE 1000ML BAG 1,000 ML IV ×2 (01:23)
[2017-11-12] MEDS: fentaNYL PF VIAL 100 MCG/2 ML VIAL IV ×4 (01:23→02:40)
[2017-11-12] MEDS: IOHEXOL 300 MG/ML 100ML VIAL. IV ×2 (01:25)
[2017-11-12 01:44] LABS: BACTERIA,URINE FEW /HPF (0-FEW); SQUAMOUS EPITHELIAL CELL,UR FEW /LPF; WBC,URINE OCC /HPF (0-4)
[2017-11-12] MEDS: AZITHROMYCIN 250 MG TABLET. PO ×2 (02:23)
== END 2017-11-12 02:49 | disposition home or self-care (01) ==
LOC: ER 11-12 02:49
DX: J95.89 Other postprocedural complications and disorders of respiratory system, not elsewhere classified (principal); G89.18 Other acute postprocedural pain; J45.909 Unspecified asthma, uncomplicated; M79.7 Fibromyalgia; G43.909 Migraine, unspecified, not intractable, without status migrainosus; F17.210 Nicotine dependence, cigarettes, uncomplicated; Z88.0 Allergy status to penicillin; Z88.1 Allergy status to other antibiotic agents; Z91.040 Latex allergy status
CPT/HCPCS: 36415; 71045; 71275; 80053; 81001; 82553; 83605; 83690; 84484; 84702; 85025; 85379; 87040; 93005; 96361; 96365; 96375; 96376; 99285-25; J0690; J2405; J3010; J7030; Q0144; Q9967

== ENCOUNTER 2018-02-13 18:44 | Emergency (ER) | payer OTHER ==
[2018-02-13] MEDS: diazePAM 5 MG TABLET PO (19:13)
== END 2018-02-13 19:39 | disposition home or self-care (01) ==
LOC: ER 18:44
DX: R25.2 Cramp and spasm (principal); M79.605 Pain in left leg; J45.909 Unspecified asthma, uncomplicated; M79.7 Fibromyalgia; F43.10 Post-traumatic stress disorder, unspecified; G43.909 Migraine, unspecified, not intractable, without status migrainosus; Z88.0 Allergy status to penicillin; Z88.1 Allergy status to other antibiotic agents; Z91.040 Latex allergy status
CPT/HCPCS: 99283

== ENCOUNTER → 2018-03-18 | Outpatient (CLI) | payer OTHER | END | disposition home or self-care (01) | LOC: PF 07:26 | DX: M25.561 Pain in right knee (principal); M25.562 Pain in left knee | CPT/HCPCS: 73560; 94010 ==

== ENCOUNTER 2018-04-12 13:42 | Emergency (ER) | payer OTHER | END 2018-04-12 15:28 | disposition home or self-care (01) | LOC: ER 15:28 | DX: S93.601A Unspecified sprain of right foot, initial encounter (principal); S93.401A Sprain of unspecified ligament of right ankle, initial encounter; J45.909 Unspecified asthma, uncomplicated; G43.909 Migraine, unspecified, not intractable, without status migrainosus; M79.7 Fibromyalgia; Z88.0 Allergy status to penicillin; Z88.1 Allergy status to other antibiotic agents; Z91.040 Latex allergy status; W17.2XXA Fall into hole, initial encounter; Y93.89 Activity, other specified; Y99.8 Other external cause status; Y92.89 Other specified places as the place of occurrence of the external cause | CPT/HCPCS: 73610; 73630; 99284 ==

== ENCOUNTER 2018-06-14 13:51 | Emergency (ER) | payer OTHER ==
[~2018-06-14] VITALS: Ht 175.3 cm; Wt 122.5 kg
[~2018-06-14 13:51] MED LIST changes: +AZIT250T6 PO; -FERR-26 PO; +FERR325T14 PO; -GADOBUTROL 10 MMOL/10 ML VIAL IV ONE; +TRAZ-86 PO; -TRAZ100T12 PO
[2018-06-14] MEDS ORDERED: ONDANSETRON PF 4 MG/2 ML VIAL. IV ONE (15:30)
[2018-06-14 17:08] VITALS: BP 122/69
--- NOTE | 2018-06-14 17:10 | PHYS DOC ---
Past Medical History Past Medical History: Anxiety, Arthritis, Asthma, Cancer, Depression, Fibromyalgia, Migraines, Other Additional Past Medical Histor: PTSD, INSOMNIA, BURSITIS, CA left kidney Past Surgical History: Cholecystectomy, Tonsillectomy, Tubal ligation Additional Past Surgical Histo: LAPROSCOPY,MIRENA REMOVAL, dental, Left kidney tumor removal Alcohol Use: None Drug Use: None Adult General Chief Complaint Chief Complaint: ANXIETY/PANIC ATTACK HPI HPI Patient is a 33 year old female who presents with panic attack. The patient has a known history of panic and anxiety. She takes an extensive number of medications for control of the symptoms already. At baseline, she uses Xanax at home. She states this medication has not relieved her symptoms. She has increased stress currently as her daughter is being admitted to a psychiatric facility. Patient denies any additional acute complaints. No chest pain or shortness of breath. She states these symptoms are identical to her normal anxiety and panic syndrome. He has been compliant with all of her medications at home. Review of Systems Review of Systems Constitutional: Denies fever or chills Eyes: Denies change in visual acuity HENT: Denies nasal congestion Respiratory: Denies cough or shortness of breath Cardiovascular: No additional information GI: Denies abdominal pain : Denies dysuria Musculoskeletal: Denies back pain Integument: Denies rash or skin lesions Neurologic: Denies headache All other systems were reviewed and found to be within normal limits, except as documented in this note. Current Medications Current Medications Current Medications Medications (Trade) Dose Ordered Sig/Cindi Start Time Stop Time Status Last Admin Dose Admin Lorazepam (Ativan) 1 mg 1X ONCE 06/14/18 16:00 06/14/18 16:01 DC 06/14/18 16:58 1 MG Ondansetron HCl (Zofran) 4 mg 1X ONCE 06/14/18 15:30 06/14/18 15:31 DC Allergies Allergies Allergies Coded Allergies Type Severity Reaction Last Updated Verified Penicillins Allergy Intermediate Shortness of Air 08/17/16 Yes amoxicillin Allergy Intermediate 08/17/16 Yes latex Allergy Intermediate Rash 08/17/16 Yes Physical Exam Physical Exam Constitutional: Well developed, well nourished, anxious but no acute distress HENT: Normocephalic, atraumatic, bilateral external ears normal, oropharynx moist Eyes: PERRLA, EOMI, conjunctiva normal Neck: Normal range of motion, no tenderness, supple Cardiovascular:Heart rate regular rhythm, no murmur Lungs & Thorax: Bilateral breath sounds clear to auscultation Abdomen: Bowel sounds normal, soft, no tenderness Skin: Warm, dry, no erythema Back: No tenderness Extremities: No tenderness, no cyanosis Neurologic: Alert and oriented X 3, normal motor function Psychologic: Affect normal Current Patient Data Vital Signs Vital Signs Date Time Temp Pulse Resp B/P (MAP) Pulse Ox O2 Delivery O2 Flow Rate FiO2 06/14/18 14:00 97.9 87 20 139/76 (97) 100 Room Air 97.9 EKG EKG [] Radiology/Procedures Radiology/Procedures [] Course & Med Decision Making Course & Med Decision Making Pertinent Labs and Imaging studies reviewed. (See chart for details) Patient was evaluated in the emergency department for anxiety symptoms. She was given 2 doses of intravenous Ativan, 1 mg each. These did relieve some of her symptoms. Following this, she is discharged. She is advised to continue all of her normal medical regimen and follow up with her primary psychiatrist or return to the ER for any new or worsening symptoms. Dragon Disclaimer Dragon Disclaimer This electronic medical record was generated, in whole or in part, using a voice recognition dictation system. Departure Departure Referrals: PEYTON DOLAN MD (PCP) MANUEL YODER DO Jun 14, 2018 17:10
== END 2018-06-14 18:04 | disposition home or self-care (01) ==
LOC: ER 13:51
DX: F41.9 Anxiety disorder, unspecified (principal); F41.0 Panic disorder [episodic paroxysmal anxiety]; G43.909 Migraine, unspecified, not intractable, without status migrainosus; F32.9 Major depressive disorder, single episode, unspecified; J45.909 Unspecified asthma, uncomplicated; F43.10 Post-traumatic stress disorder, unspecified; Z88.1 Allergy status to other antibiotic agents; Z88.0 Allergy status to penicillin; Z91.040 Latex allergy status
CPT/HCPCS: 96374; 96376; 99284; J2060

== ENCOUNTER 2018-06-30 15:13 | Emergency (ER) | payer OTHER ==
[~2018-06-30] VITALS: Ht 175.3 cm; Wt 127.0 kg
[2018-06-30 16:10] VITALS: BP 121/60
[2018-06-30] MEDS ORDERED: ACETAMINOPHEN 500 MG TABLET PO ONE (16:45)
[2018-06-30] MEDS ORDERED: HYDROcodone/APAP 5/325MG 1 TAB TABLET PO ONE (17:00)
--- NOTE | 2018-06-30 17:26 | PHYS DOC ---
Past Medical History Past Medical History: Anxiety, Arthritis, Asthma, Cancer, Depression, Fibromyalgia, Migraines, Other Additional Past Medical Histor: PTSD, INSOMNIA, BURSITIS, CA left kidney Past Surgical History: Cholecystectomy, Tonsillectomy, Tubal ligation Additional Past Surgical Histo: LAPROSCOPY,MIRENA REMOVAL, dental, Left kidney tumor removal Alcohol Use: None Drug Use: None Adult General Chief Complaint Chief Complaint: GENERALIZED BODY ACHES HPI HPI Patient is a 33 year old female who presents with cough, body aches and sore throat. She denies fever. Review of Systems Review of Systems Constitutional: Denies fever or chills [] Eyes: Denies change in visual acuity, redness, or eye pain [] HENT: Denies nasal congestion or sore throat [] Respiratory: Denies cough or shortness of breath [] Cardiovascular: No additional information not addressed in HPI [] GI: Denies abdominal pain, nausea, vomiting, bloody stools or diarrhea [] : Denies dysuria or hematuria [] Musculoskeletal: Denies back pain or joint pain [] Integument: Denies rash or skin lesions [] Neurologic: Denies headache, focal weakness or sensory changes [] Endocrine: Denies polyuria or polydipsia [] All other systems were reviewed and found to be within normal limits, except as documented in this note. Current Medications Current Medications Current Medications Medications (Trade) Dose Ordered Sig/Cindi Start Time Stop Time Status Last Admin Dose Admin Acetaminophen (Tylenol) 1,000 mg 1X ONCE 06/30/18 16:45 06/30/18 16:56 DC Acetaminophen/ Hydrocodone Bitart (Lortab 5/325) 1 tab 1X ONCE 06/30/18 17:00 06/30/18 17:01 DC 06/30/18 17:14 1 TAB Allergies Allergies Allergies Coded Allergies Type Severity Reaction Last Updated Verified Penicillins Allergy Intermediate Shortness of Air 08/17/16 Yes amoxicillin Allergy Intermediate 08/17/16 Yes latex Allergy Intermediate Rash 08/17/16 Yes Physical Exam Physical Exam Constitutional: Well developed, well nourished, no acute distress, non-toxic appearance. [] HENT: Normocephalic, atraumatic, bilateral external ears normal, oropharynx moist, no oral exudates, nose normal. [] Eyes: PERRLA, EOMI, conjunctiva normal, no discharge. [] Neck: Normal range of motion, no tenderness, supple, no stridor. [] Cardiovascular:Heart rate regular rhythm, no murmur [] Lungs & Thorax: Bilateral breath sounds clear to auscultation [] Abdomen: Bowel sounds normal, soft, no tenderness, no masses, no pulsatile masses. [] Skin: Warm, dry, no erythema, no rash. [] Back: No tenderness, no CVA tenderness. [] Extremities: No tenderness, no cyanosis, no clubbing, ROM intact, no edema. [] Neurologic: Alert and oriented X 3, normal motor function, normal sensory function, no focal deficits noted. [] Psychologic: Affect normal, judgement normal, mood normal. [] Current Patient Data Vital Signs Vital Signs Date Time Temp Pulse Resp B/P (MAP) Pulse Ox O2 Delivery O2 Flow Rate FiO2 06/30/18 16:10 97.6 72 20 121/60 (80) 99 Room Air 97.6 EKG EKG [] Radiology/Procedures Radiology/Procedures [] Course & Med Decision Making Course & Med Decision Making Pertinent Labs and Imaging studies reviewed. (See chart for details) [] Dragon Disclaimer Dragon Disclaimer This electronic medical record was generated, in whole or in part, using a voice recognition dictation system. Departure Departure Impression: Primary Impression: Upper respiratory infection Disposition: 01 HOME, SELF-CARE Condition: STABLE Referrals: PEYTON DOLAN MD (PCP) Patient Instructions: Upper Respiratory Infection, Adult Additional Instructions: You may take ibuprofen or Tylenol for pain. You may use [id number] cold and cough medicine for symptom control. Follow-up with your primary care provider in 3 days for recheck or return to the emergency department if worsening. YOLIE SIMS APRN Jun 30, 2018 17:26
== END 2018-06-30 17:25 | disposition home or self-care (01) ==
LOC: ER 15:13
DX: J06.9 Acute upper respiratory infection, unspecified (principal); J45.909 Unspecified asthma, uncomplicated; G43.909 Migraine, unspecified, not intractable, without status migrainosus; F43.10 Post-traumatic stress disorder, unspecified; Z88.0 Allergy status to penicillin; Z88.1 Allergy status to other antibiotic agents; Z91.040 Latex allergy status
CPT/HCPCS: 87070; 87880; 99281; 99283

== ENCOUNTER 2018-07-15 15:56 | Emergency (ER) | payer OTHER ==
[~2018-07-15] VITALS: Ht 175.3 cm; Wt 127.0 kg
[2018-07-15 16:14] VITALS: BP 140/69
[2018-07-15] MEDS ORDERED: AZIT250T6 PO (16:36)
--- NOTE | 2018-07-15 16:36 | PHYS DOC ---
Past Medical History Past Medical History: Anxiety, Arthritis, Asthma, Cancer, Depression, Fibromyalgia, Migraines, Other Additional Past Medical Histor: PTSD, INSOMNIA, BURSITIS, CA left kidney Past Surgical History: Cholecystectomy, Tonsillectomy, Tubal ligation Additional Past Surgical Histo: LAPROSCOPY,MIRENA REMOVAL, dental, Left kidney tumor removal Alcohol Use: None Drug Use: None Adult General Chief Complaint Chief Complaint: COUGH HPI HPI Patient is a 33 year old female who presents to the ER with complaints of a dry cough for the last 2-3 weeks. Patient states that she went to her primary care provider's office last week and was given a shot of steroids. She reports little relief of her cough with these symptoms. She also reports a large amount of sinus drainage, sinus pressure, and sore throat with her symptoms. She denies any fever, nausea, vomiting, diarrhea, or abdominal pain. She last took a breathing treatment at approximately 1300. Review of Systems Review of Systems Constitutional: Denies fever or chills [] HENT: Reports nasal congestion, sinus pressure, throat clearing, and sore throat. Respiratory: Reports dry cough and shortness of breath with wheezing for the last 2-3 weeks. Cardiovascular: Denies chest pain GI: Denies abdominal pain, nausea, vomiting, or diarrhea [] Musculoskeletal: Denies back pain Integument: Denies rash or skin lesions [] Neurologic: Denies headache, focal weakness or sensory changes [] All other systems were reviewed and found to be within normal limits, except as documented in this note. Allergies Allergies Allergies Coded Allergies Type Severity Reaction Last Updated Verified Penicillins Allergy Intermediate Shortness of Air 08/17/16 Yes amoxicillin Allergy Intermediate 08/17/16 Yes latex Allergy Intermediate Rash 08/17/16 Yes Physical Exam Physical Exam Constitutional: Well developed, well nourished, no acute distress, non-toxic appearance, obese [] HENT: Normocephalic, atraumatic, bilateral external ears normal, lateral TMs normal, cobblestone appearance of posterior pharynx with moderate amount of posterior sinus drainage, maxillary sinus tenderness to palpation, oropharynx moist, no oral exudates, nose normal. [] Eyes: PERRLA, conjunctiva normal, no discharge. [] Neck: Normal range of motion, no tenderness, supple, no stridor. [] Cardiovascular:Heart rate regular rhythm, no murmur [] Lungs & Thorax: Bilateral breath sounds clear to auscultation [] Skin: Warm, dry, no erythema, no rash. [] Extremities: no cyanosis, no clubbing, ROM intact, no edema. [] Neurologic: Alert and oriented X 3, normal motor function, normal sensory function, no focal deficits noted. [] Psychologic: Affect normal, judgement normal, mood normal. [] Current Patient Data Vital Signs Vital Signs Date Time Temp Pulse Resp B/P (MAP) Pulse Ox O2 Delivery O2 Flow Rate FiO2 07/15/18 16:14 98.2 79 22 140/69 (92) 96 Room Air 98.2 EKG EKG [] Radiology/Procedures Radiology/Procedures [] Course & Med Decision Making Course & Med Decision Making Pertinent Labs and Imaging studies reviewed. (See chart for details) dx: Acute sinusitis, URI Prescription was written for Zithromax. Patient advised to continue using Flonase, may try a different antihistamine such as Zyrtec. Avoid exposure to airway irritants. Follow-up with primary care doctor next week. Return to the emergency room if symptoms worsen. Patient verbalized an understanding of home care, medications, follow-up, and return to ED instructions and was in agreement with the plan of care. [] Staff Physician Addendum: I was working in the ER during the course of this patient's visit. I was available for consultation as needed, but I was not directly involved in the care of this patient. Dragon Disclaimer Dragon Disclaimer This electronic medical record was generated, in whole or in part, using a voice recognition dictation system. Departure Departure Impression: Primary Impression: Sinusitis, acute maxillary Additional Impression: URI (upper respiratory infection) Disposition: 01 HOME, SELF-CARE Condition: STABLE Referrals: PEYTON DOLAN MD (PCP) Patient Instructions: Sinusitis, [id number], Upper Respiratory Infection, Adult, [id number] Additional Instructions: Fill prescription(s) and use as directed. OTC Flonase 2 sprays each nare daily. Cool mistn humidifier in room at bedtime. Tylenol or ibuprofen prn pain/fever. Increase clear fluids. Avoid triggers such as smoke, fragrance, dust, and pollen. May take OTC cough suppressants as needed. Follow-up with your primary care doctor next week. Return to ER if symptoms worsen. Scripts Azithromycin (AZITHROMYCIN TABLET) 250 Mg Tablet 1 PKG PO UD for 5 Days, #6 TAB 0 Refills take 2 tabs PO day 1 then 1 tab PO days 2-5 Prov: SARITA LEON APRN 07/15/18 Problem Qualifiers Primary Impression: Sinusitis, acute maxillary Recurrence: not specified as recurrent Qualified Codes: J01.00 - Acute maxillary sinusitis, unspecified Additional Impression: URI (upper respiratory infection) URI type: unspecified URI Qualified Codes: J06.9 - Acute upper respiratory infection, unspecified SARITA LEON APRN Jul 15, 2018 16:36 RADHA PEREZ MD Jul 16, 2018 07:08
== END 2018-07-15 17:05 | disposition home or self-care (01) ==
LOC: ER 15:56
DX: J06.9 Acute upper respiratory infection, unspecified (principal); J01.00 Acute maxillary sinusitis, unspecified; F41.9 Anxiety disorder, unspecified; M19.90 Unspecified osteoarthritis, unspecified site; J45.909 Unspecified asthma, uncomplicated; M79.7 Fibromyalgia; G43.909 Migraine, unspecified, not intractable, without status migrainosus; Z88.0 Allergy status to penicillin; Z88.1 Allergy status to other antibiotic agents; Z91.040 Latex allergy status
CPT/HCPCS: 99283

== ENCOUNTER 2018-08-11 16:23 | Emergency (ER) | payer SELFPAY ==
[~2018-08-11] VITALS: Ht 167.6 cm; Wt 136.1 kg
[2018-08-11 18:20] VITALS: BP 144/67
[2018-08-11] MEDS ORDERED: KETOROLAC 60 MG/2 ML INJ. IM ONE (18:45)
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
== END 2018-08-11 19:07 | disposition home or self-care (01) ==
LOC: ER 16:23
DX: G89.11 Acute pain due to trauma (principal); M54.5 Low back pain; M54.2 Cervicalgia; R51 Headache; R07.9 Chest pain, unspecified; R03.0 Elevated blood-pressure reading, without diagnosis of hypertension; J45.909 Unspecified asthma, uncomplicated; Z88.0 Allergy status to penicillin; Z88.1 Allergy status to other antibiotic agents; Z91.040 Latex allergy status; V89.2XXA Person injured in unspecified motor-vehicle accident, traffic, initial encounter; Y93.89 Activity, other specified; Y92.89 Other specified places as the place of occurrence of the external cause; Y99.8 Other external cause status
CPT/HCPCS: 81025; 96372; 99283; J1885

== ENCOUNTER 2018-10-26 16:38 | Emergency (ER) | payer OTHER ==
[~2018-10-26] VITALS: Ht 167.6 cm; Wt 136.1 kg
[~2018-10-26 16:38] MED LIST changes: +ALBU2.5V8 INH; -GABA600T2 PO; +GABA600T7 PO; +HYDR-3164 PO; -HYDR-971 PO; -OXYC-323 PO; +OXYC1TAB15 PO; -PROAIR HFA8.5 GM INH; -TIZA4TAB PO; +TIZA4TAB2 PO
[2018-10-26 16:40] VITALS: BP 153/73
[2018-10-26] MEDS ORDERED: LORazepam 1 MG TABLET PO ONE (17:00)
--- NOTE | 2018-10-26 17:24 | PHYS DOC ---
Past Medical History Past Medical History: Anxiety, Arthritis, Asthma, Cancer, Depression, Fibromyalgia, Migraines, Other Additional Past Medical Histor: PTSD, INSOMNIA, BURSITIS, CA left kidney Past Surgical History: Cholecystectomy, Tonsillectomy, Tubal ligation Additional Past Surgical Histo: LAPROSCOPY,MIRENA REMOVAL, dental, Left kidney tumor removal Alcohol Use: None Drug Use: None Adult General Chief Complaint Chief Complaint: ANXIETY/PANIC ATTACK HPI HPI Patient is a 33 year old female with history of anxiety who presents today complaining of anxiety, patient apparently brought her daughter to be seen for constipation, and decided to sign in to be checked out for anxiety because she is worried her daughter's constipation will make her anxious. Patient denies any suicidal or homicidal ideations. She states she normally comes to the hospital and gets Ativan IV for anxiety. Patient was offered Ativan by mouth. She was instructed to follow-up with her own PCP. She states she is already on clonazepam. She is in no distress and was discharged to home. Review of Systems Review of Systems Constitutional: Denies fever or chills [] Eyes: Denies change in visual acuity, redness, or eye pain [] HENT: Denies nasal congestion or sore throat [] Respiratory: Denies cough or shortness of breath [] Cardiovascular: No additional information not addressed in HPI [] GI: Denies abdominal pain, nausea, vomiting, bloody stools or diarrhea [] : Denies dysuria or hematuria [] Musculoskeletal: Denies back pain or joint pain [] Integument: Denies rash or skin lesions [] Neurologic: Denies headache, focal weakness or sensory changes [] Endocrine: Reports anxiety All other systems were reviewed and found to be within normal limits, except as documented in this note. Current Medications Current Medications Current Medications Medications (Trade) Dose Ordered Sig/Cindi Start Time Stop Time Status Last Admin Dose Admin Lorazepam (Ativan) 0.5 mg 1X ONCE 10/26/18 17:00 10/26/18 17:01 DC 10/26/18 17:14 0.5 MG Allergies Allergies Allergies Coded Allergies Type Severity Reaction Last Updated Verified Penicillins Allergy Intermediate Shortness of Air 08/17/16 Yes amoxicillin Allergy Intermediate 08/17/16 Yes latex Allergy Intermediate Rash 08/17/16 Yes Physical Exam Physical Exam Constitutional: Well developed, well nourished, no acute distress, non-toxic appearance. [] HENT: Normocephalic, atraumatic, bilateral external ears normal, oropharynx moist, no oral exudates, nose normal. [] Eyes: PERRLA, EOMI, conjunctiva normal, no discharge. [] Neck: Normal range of motion, no tenderness, supple, no stridor. [] Cardiovascular:Heart rate regular rhythm, no murmur [] Lungs & Thorax: Bilateral breath sounds clear to auscultation [] Abdomen: Bowel sounds normal, soft, no tenderness, no masses, no pulsatile masses. [] Skin: Warm, dry, no erythema, no rash. [] Back: No tenderness, no CVA tenderness. [] Extremities: No tenderness, no cyanosis, no clubbing, ROM intact, no edema. [] Neurologic: Alert and oriented X 3, normal motor function, normal sensory function, no focal deficits noted. [] Psychologic: Affect normal, judgement normal, mood normal. [] EKG EKG [] Radiology/Procedures Radiology/Procedures [] Course & Med Decision Making Course & Med Decision Making Pertinent Labs and Imaging studies reviewed. (See chart for details) See HPI [] Dragon Disclaimer Dragon Disclaimer This electronic medical record was generated, in whole or in part, using a voice recognition dictation system. Departure Departure Impression: Primary Impression: Anxiety Disposition: 01 HOME, SELF-CARE Condition: STABLE Referrals: PEYTON DOLAN MD (PCP) follow up in 1-2 weeks Patient Instructions: Anxiety and Panic Attacks Additional Instructions: Please follow-up with your own doctor for chronic anxiety. Continue taking your antianxiety medicines at home. RAMIROSHALOM HEAD CONTROL CLERK Oct 26, 2018 17:24
== END 2018-10-26 17:22 | disposition home or self-care (01) ==
LOC: ER 16:38
DX: F41.9 Anxiety disorder, unspecified (principal); K59.00 Constipation, unspecified; J45.909 Unspecified asthma, uncomplicated; G43.909 Migraine, unspecified, not intractable, without status migrainosus; F43.10 Post-traumatic stress disorder, unspecified; F32.9 Major depressive disorder, single episode, unspecified; Z90.49 Acquired absence of other specified parts of digestive tract; Z98.51 Tubal ligation status; Z88.0 Allergy status to penicillin; Z88.1 Allergy status to other antibiotic agents; Z91.040 Latex allergy status; Z98.890 Other specified postprocedural states
CPT/HCPCS: 99284

== ENCOUNTER 2018-11-09 14:23 | Emergency (ER) | payer OTHER ==
[~2018-11-09] VITALS: Ht 175.3 cm; Wt 136.1 kg
[2018-11-09] MEDS ORDERED: ONDANSETRON PF 4 MG/2 ML VIAL. IV ONE (14:45)
[2018-11-09 15:08] LABS: BASO # 0.1 x10^3/uL (0.0-0.2); BASO % 1 % (0-3); EOS # 0.1 x10^3/uL (0.0-0.7); EOS % 1 % (0-3); HEMATOCRIT 41.7 % (36.0-47.0); HEMOGLOBIN 13.8 g/dL (12.0-15.5); LYMPH % 25 % (24-48); MEAN CORPUSCULAR HEMOGLOBIN 31 pg (25-35); MEAN CORPUSCULAR HGB CONC 33 g/dL (31-37); MEAN CORPUSCULAR VOLUME 94 fL (79-100); MONO # 0.5 x10^3/uL (0.0-1.1); MONO % 6 % (0-9); NEUT # 5.5 x10^3uL (1.8-7.7); NEUT % 67 % (31-73); PLATELET COUNT 231 x10^3/uL (140-400); RED BLOOD COUNT 4.46 x10^6/uL (3.50-5.40); RED CELL DISTRIBUTION WIDTH 14.2 % (11.5-14.5); WHITE BLOOD COUNT 8.2 x10^3/uL (4.0-11.0)
--- NOTE | 2018-11-09 15:16 | RAD ---
Single view chest and upright and supine AP views abdomen 11/09/2018 Clinical indications: Abdominal pain. COMPARISON: MRI abdomen 09/01/2017, CTA chest 11/12/2017 FINDINGS: Cardiac and mediastinal silhouettes are unremarkable. No pleural effusion, pneumothorax or focal consolidation. There is a nonobstructive bowel gas pattern. No pneumoperitoneum. Multiple surgical clips overlying the upper abdomen. There are radiopaque safety pins overlying the central pelvis. IMPRESSION: 1. Radiopaque safety pins overlying the central pelvis, likely external to the patient, however clinical correlation is recommended. 2. No radiographic evidence of bowel obstruction or pneumoperitoneum. 3. No acute cardiopulmonary abnormality. Electronically signed by: George Santoyo MD (11/09/2018 3:12 PM) [facility]
[2018-11-09 15:25] LABS: CALCIUM 8.9 mg/dL (8.5-10.1); CREATININE 0.9 mg/dL (0.6-1.0); POTASSIUM 3.3 mmol/L (3.5-5.1)
[2018-11-09 15:30] LABS: ALBUMIN 3.6 g/dL (3.4-5.0); TOTAL BILIRUBIN 0.4 mg/dL (0.2-1.0); TOTAL PROTEIN 7.3 g/dL (6.4-8.2)
[2018-11-09 16:26] LABS: BILIRUBIN,URINE NEGATIVE (NEG); CLARITY,URINE CLEAR; COLOR,URINE YELLOW; NITRITE,URINE NEGATIVE (NEG); PH,URINE 7.5; PROTEIN,URINE NEGATIVE (NEG-TRACE); UROBILINOGEN,URINE 0.2 mg/dL (0.2 mg/dL)
[2018-11-09 16:35] LABS: BACTERIA,URINE FEW /HPF (0-FEW); RBC,URINE 0 /HPF (0-2); SQUAMOUS EPITHELIAL CELL,UR OCC /LPF
[2018-11-09] MEDS ORDERED: POTASSIUM CHLORIDE 20 MEQ TABLET.ER. PO ONE (16:45)
[2018-11-09 16:49] VITALS: BP 123/59
--- NOTE | 2018-11-09 16:59 | PHYS DOC ---
Past Medical History Past Medical History: Anxiety, Arthritis, Asthma, Cancer, Depression, Fibromyalgia, Migraines, Other Additional Past Medical Histor: PTSD, INSOMNIA, BURSITIS, CA left kidney Past Surgical History: Cholecystectomy, Tonsillectomy, Tubal ligation Additional Past Surgical Histo: LAPROSCOPY,MIRENA REMOVAL, dental, Left kidney tumor removal Alcohol Use: Occasionally Drug Use: None Adult General Chief Complaint Chief Complaint: MULTIPLE COMPLAINTS HPI HPI Patient is a 33 year old female who presents with painful cough and anxiety. The patient was brought to the facility by EMS. She states that her cough has been worsening over the past few days. She denies nausea or vomiting. She denies fever or body aches. Review of Systems Review of Systems Constitutional: Denies fever or chills [] Eyes: Denies change in visual acuity, redness, or eye pain [] HENT: Denies nasal congestion or sore throat [] Respiratory: See history of present illness Cardiovascular: No additional information not addressed in HPI [] GI: Denies abdominal pain, nausea, vomiting, bloody stools or diarrhea [] : Denies dysuria or hematuria [] Musculoskeletal: Denies back pain or joint pain [] Integument: Denies rash or skin lesions [] Neurologic: Denies headache, focal weakness or sensory changes [] Endocrine: Denies polyuria or polydipsia [] All other systems were reviewed and found to be within normal limits, except as documented in this note. Current Medications Current Medications Current Medications Medications (Trade) Dose Ordered Sig/C[facility] Start Time Stop Time Status Last Admin Dose Admin Ondansetron HCl (Zofran) 4 mg 1X ONCE 11/09/18 14:45 11/09/18 14:46 DC 11/09/18 15:39 4 MG Potassium Chloride (Klor-Con) 40 meq 1X ONCE 11/09/18 16:45 11/09/18 16:46 DC 11/09/18 16:49 40 MEQ Allergies Allergies Allergies Coded Allergies Type Severity Reaction Last Updated Verified Penicillins Allergy Intermediate Shortness of Air 08/17/16 Yes amoxicillin Allergy Intermediate 08/17/16 Yes latex Allergy Intermediate Rash 08/17/16 Yes Physical Exam Physical Exam Constitutional: Well developed, well nourished, no acute distress, non-toxic appearance. [] HENT: Normocephalic, atraumatic, bilateral external ears normal, oropharynx moist, no oral exudates, nose normal. [] Eyes: PERRLA, EOMI, conjunctiva normal, no discharge. [] Neck: Normal range of motion, no tenderness, supple, no stridor. [] Cardiovascular:Heart rate regular rhythm, no murmur [] Lungs & Thorax: Bilateral breath sounds clear to auscultation [] Abdomen: Bowel sounds normal, soft, no tenderness, no masses, no pulsatile masses. [] Skin: Warm, dry, no erythema, no rash. [] Back: No tenderness, no CVA tenderness. [] Extremities: No tenderness, no cyanosis, no clubbing, ROM intact, no edema. [] Neurologic: Alert and oriented X 3, normal motor function, normal sensory function, no focal deficits noted. [] Psychologic: Affect normal, judgement normal, mood anxious[] Current Patient Data Vital Signs Vital Signs Date Time Temp Pulse Resp B/P (MAP) Pulse Ox O2 Delivery O2 Flow Rate FiO2 11/09/18 16:49 76 16 123/59 (80) 97 Room Air 11/09/18 14:34 98.7 98.7 Lab Values Laboratory Tests Test 11/09/18 14:55 11/09/18 15:07 White Blood Count 8.2 x10^3/uL (4.0-11.0) Red Blood Count 4.46 x10^6/uL (3.50-5.40) Hemoglobin 13.8 g/dL (12.0-15.5) Hematocrit 41.7 % (36.0-47.0) Mean Corpuscular Volume 94 fL (79-100) Mean Corpuscular Hemoglobin 31 pg (25-35) Mean Corpuscular Hemoglobin Concent 33 g/dL (31-37) Red Cell Distribution Width 14.2 % (11.5-14.5) Platelet Count 231 x10^3/uL (140-400) Neutrophils (%) (Auto) 67 % (31-73) Lymphocytes (%) (Auto) 25 % (24-48) Monocytes (%) (Auto) 6 % (0-9) Eosinophils (%) (Auto) 1 % (0-3) Basophils (%) (Auto) 1 % (0-3) Neutrophils # (Auto) 5.5 x10^3uL (1.8-7.7) Lymphocytes # (Auto) 2.0 x10^3/uL (1.0-4.8) Monocytes # (Auto) 0.5 x10^3/uL (0.0-1.1) Eosinophils # (Auto) 0.1 x10^3/uL (0.0-0.7) Basophils # (Auto) 0.1 x10^3/uL (0.0-0.2) Sodium Level 143 mmol/L (136-145) Potassium Level 3.3 mmol/L (3.5-5.1) L Chloride Level 104 mmol/L (98-107) Carbon Dioxide Level 28 mmol/L (21-32) Anion Gap 11 (6-14) Blood Urea Nitrogen 14 mg/dL (7-20) Creatinine 0.9 mg/dL (0.6-1.0) Estimated GFR (Cockcroft-Gault) 73.0 BUN/Creatinine Ratio 16 (6-20) Glucose Level 82 mg/dL (70-99) Calcium Level 8.9 mg/dL (8.5-10.1) Total Bilirubin 0.4 mg/dL (0.2-1.0) Aspartate Amino Transferase (AST) 22 U/L (15-37) Alanine Aminotransferase (ALT) 45 U/L (14-59) Alkaline Phosphatase 88 U/L (46-116) Total Protein 7.3 g/dL (6.4-8.2) Albumin 3.6 g/dL (3.4-5.0) Albumin/Globulin Ratio 1.0 (1.0-1.7) Urine Color Yellow Urine Clarity Clear Urine pH 7.5 Urine Specific Burchard 1.020 Urine Protein Negative mg/dL (NEG-TRACE) Urine Glucose (UA) Negative mg/dL (NEG) Urine Ketones (Stick) Negative mg/dL (NEG) Urine Blood Negative (NEG) Urine Nitrite Negative (NEG) Urine Bilirubin Negative (NEG) Urine Urobilinogen Dipstick 0.2 mg/dL (0.2 mg/dL) Urine Leukocyte Esterase Negative (NEG) Urine RBC 0 /HPF (0-2) Urine WBC 1-4 /HPF (0-4) Urine Squamous Epithelial Cells Occ /LPF Urine Bacteria Few /HPF (0-FEW) Urine Mucus Mod /LPF Laboratory Tests 11/09/18 14:55 Laboratory Tests 11/09/18 14:55 EKG EKG [] Radiology/Procedures Radiology/Procedures []PATIENT: DOLORES ROMANCCOUNT: [id number]#: [id number] : 1985 LOCATION: ER AGE: 33 SEX: F EXAM STATUS: REG ER ORD. PHYSICIAN: YOLIE SIMS APRN REASON: epigastric pain PROCEDURE: ACUTE ABDOMEN SERIES Single view chest and upright and supine AP views abdomen 11/09/2018 Clinical indications: Abdominal pain. COMPARISON: MRI abdomen 09/01/2017, CTA chest 11/12/2017 FINDINGS: Cardiac and mediastinal silhouettes are unremarkable. No pleural effusion, pneumothorax or focal consolidation. There is a nonobstructive bowel gas pattern. No pneumoperitoneum. Multiple surgical clips overlying the upper abdomen. There are radiopaque safety pins overlying the central pelvis. IMPRESSION: 1. Radiopaque safety pins overlying the central pelvis, likely external to the patient, however clinical correlation is recommended. 2. No radiographic evidence of bowel obstruction or pneumoperitoneum. 3. No acute cardiopulmonary abnormality. Electronically signed by: Michael Santoyo MD (11/09/2018 3:12 PM) [facility] DICTATED and SIGNED BY: MICHAEL SANTOYO MD DATE: 11/09/181509 Course & Med Decision Making Course & Med Decision Making Pertinent Labs and Imaging studies reviewed. (See chart for details) []The patient was given potassium in the emergency department. She complained of nausea. She was then given a dose of Zofran for her symptoms. Dragon Disclaimer Vasiliy Disclaimer This electronic medical record was generated, in whole or in part, using a voice recognition dictation system. Departure Departure Impression: Primary Impression: Anxiety Additional Impression: Cough Disposition: HOME, SELF-CARE Condition: STABLE Referrals: PEYTON DOLAN MD (PCP) Patient Instructions: Anxiety and Panic Attacks, Cough, Adult Additional Instructions: Follow-up with your primary care provider in 2-3 days if not improving or return to the emergency department if worsening. Problem Qualifiers YOLIE SIMS APRN Nov 09, 2018 16:59
== END 2018-11-09 17:18 | disposition home or self-care (01) ==
LOC: ER 14:23
DX: F41.9 Anxiety disorder, unspecified (principal); R05 Cough; F43.10 Post-traumatic stress disorder, unspecified; J45.909 Unspecified asthma, uncomplicated; G43.909 Migraine, unspecified, not intractable, without status migrainosus; Z90.49 Acquired absence of other specified parts of digestive tract; Z85.528 Personal history of other malignant neoplasm of kidney; Z98.51 Tubal ligation status; Z88.0 Allergy status to penicillin; Z88.1 Allergy status to other antibiotic agents; Z91.040 Latex allergy status
CPT/HCPCS: 36415; 74022; 80053; 81001; 85025; 96374; 99284; J2405

== ENCOUNTER → 2018-11-10 | Outpatient (CLI) | payer OTHER ==
[2018-11-09 16:49] VITALS: BP 123/59
--- NOTE | 2018-11-10 15:57 | KCIC ---
EXAM: Abdomen, 2 views. HISTORY: Foreign body. COMPARISON: 11/09/2018. FINDINGS: Frontal upright and supine views of the abdomen are obtained. There are fallopian tube closure devices overlying the bilateral adnexal regions. There are cholecystectomy clips. There are surgical clips within the left upper quadrant. There is gas and stool within the colon. There is no bowel obstruction. IMPRESSION: 1. Bilateral fallopian tube closure devices overlying the pelvis and surgical clips within the upper abdomen. 2. Nonobstructive bowel gas pattern. Electronically signed by: Pat Patton MD (11/10/2018 3:52 PM) [facility]
== END | disposition home or self-care (01) ==
LOC: KCIC 13:56
PROVIDERS: ATTEND Physician Assistant Medical
DX: R93.5 Abnormal findings on diagnostic imaging of other abdominal regions, including retroperitoneum (principal); Z90.49 Acquired absence of other specified parts of digestive tract
CPT/HCPCS: 74021

== ENCOUNTER 2018-12-29 12:56 | Emergency (ER) | payer OTHER ==
[~2018-12-29] VITALS: Ht 175.3 cm; Wt 122.5 kg
[~2018-12-29 12:56] MED LIST changes: +TIZA4TAB PO; -TIZA4TAB2 PO
[2018-12-29 13:04] VITALS: BP 151/84
--- NOTE | 2018-12-29 13:36 | PHYS DOC ---
Past Medical History Past Medical History: Anxiety, Arthritis, Asthma, Cancer, Depression, Fibromyalgia, Migraines, Other Additional Past Medical Histor: PTSD, INSOMNIA, BURSITIS, CA left kidney Past Surgical History: Cholecystectomy, Tonsillectomy, Tubal ligation Additional Past Surgical Histo: LAPROSCOPY,MIRENA REMOVAL, dental, Left kidney tumor removal Additional Information: 0.5 PPD Alcohol Use: Occasionally Drug Use: Other Social History Narrative: CBD OIL Adult General Chief Complaint Chief Complaint: LOWER EXT PAIN HPI HPI Patient is a 33 year old female with history of fibromyalgia, anxiety, depression, who presents to the ED today complaining of bilateral lower extremity pain rated at 10 out of 10 described as throbbing and constant that began yesterday. Patient states this pain is a result of working at her job where she has to stand on her feet for 8 hours straight with no breaks. She works at a gas station. Patient denies any known injury. Denies any personal family history of DVTs, denies being on any hormones. Denies any recent long car rides. Review of Systems Review of Systems Constitutional: Denies fever or chills [] Eyes: Denies change in visual acuity, redness, or eye pain [] HENT: Denies nasal congestion or sore throat [] Respiratory: Denies cough or shortness of breath [] Cardiovascular: No additional information not addressed in HPI [] GI: Denies abdominal pain, nausea, vomiting, bloody stools or diarrhea [] : Denies dysuria or hematuria [] Musculoskeletal: Reports bilateral lower extremity pain and swelling Integument: Denies rash or skin lesions [] Neurologic: Denies headache, focal weakness or sensory changes [] All other systems were reviewed and found to be within normal limits, except as documented in this note. Allergies Allergies Allergies Coded Allergies Type Severity Reaction Last Updated Verified oxycodone Allergy Severe HALLUCINATIONS 12/29/18 Yes Penicillins Allergy Intermediate Shortness of Air 08/17/16 Yes amoxicillin Allergy Intermediate 08/17/16 Yes latex Allergy Intermediate Rash 08/17/16 Yes Physical Exam Physical Exam Constitutional: Well developed, well nourished, no acute distress, non-toxic appearance. [] HENT: Normocephalic, atraumatic, bilateral external ears normal, oropharynx moist, no oral exudates, nose normal. [] Eyes: PERRLA, EOMI, conjunctiva normal, no discharge. [] Neck: Normal range of motion, no tenderness, supple, no stridor. [] Cardiovascular:Heart rate regular rhythm, no murmur [] Lungs & Thorax: Bilateral breath sounds clear to auscultation [] Abdomen: Bowel sounds normal, soft, no tenderness, no masses, no pulsatile masses. [] Skin: Warm, dry, no erythema, no rash. [] Back: No tenderness, no CVA tenderness. [] Extremities: Tenderness diffusely throughout the lower extremities aren't touching her legs, no cyanosis, no clubbing, ROM intact, no obvious edema noted to bilateral lower extremities, negative Homans sign bilaterally. Neurologic: Alert and oriented X 3, normal motor function, normal sensory function, no focal deficits noted. [] Psychologic: Affect normal, judgement normal, mood normal. [] Current Patient Data Vital Signs Vital Signs Date Time Temp Pulse Resp B/P (MAP) Pulse Ox O2 Delivery O2 Flow Rate FiO2 12/29/18 13:04 98.5 86 18 151/84 (106) 96 Room Air 98.5 EKG EKG [] Radiology/Procedures Radiology/Procedures [] Course & Med Decision Making Course & Med Decision Making Pertinent Labs and Imaging studies reviewed. (See chart for details) This is a 33-year-old female patient presenting to the ED today complaining of bilateral lower extremity swelling and pain since yesterday as as result of working in a job where she has to stand on her feet for 8 hours. Patient was advised to get compression stockings. She was advised to try and elevate her feet when she goes to bed. She is already on gabapentin and amitriptyline. Informed her she can also take ibuprofen [id number]. Instructed to follow- up with her own PCP in 1-2 weeks. Dragon Disclaimer Dragon Disclaimer This electronic medical record was generated, in whole or in part, using a voice recognition dictation system. Departure Departure Impression: Primary Impression: Swelling of lower leg Additional Impression: Lower extremity pain Disposition: 01 HOME, SELF-CARE Condition: STABLE Referrals: PEYTON DOLAN MD (PCP) Follow-up in 1-2 weeks Patient Instructions: Edema, Musculoskeletal Pain Additional Instructions: You were evaluated in the emergency room for lower extremity swelling and pain. Try and wear your compression stockings during the day. Try and elevate your feet when resting at night. Continue taking gabapentin and amitriptyline which you have at home. You can also take ibuprofen as needed for pain. Follow-up with your doctor in 1-2 weeks. Problem Qualifiers Additional Impression: Lower extremity pain Laterality: bilateral Qualified Codes: M79.604 - Pain in right leg; M79.605 - Pain in left leg SHALOM RUBIO APRN Dec 29, 2018 13:36
== END 2018-12-29 13:42 | disposition home or self-care (01) ==
LOC: ER 12:56
DX: M79.89 Other specified soft tissue disorders (principal); M79.605 Pain in left leg; M79.604 Pain in right leg; F41.9 Anxiety disorder, unspecified; M19.90 Unspecified osteoarthritis, unspecified site; F32.9 Major depressive disorder, single episode, unspecified; G43.909 Migraine, unspecified, not intractable, without status migrainosus; F17.200 Nicotine dependence, unspecified, uncomplicated; Z90.49 Acquired absence of other specified parts of digestive tract; Z90.89 Acquired absence of other organs; Z98.51 Tubal ligation status; Z88.5 Allergy status to narcotic agent; Z88.1 Allergy status to other antibiotic agents; Z88.0 Allergy status to penicillin; Z91.040 Latex allergy status
CPT/HCPCS: 99281

== ENCOUNTER 2021-01-29 15:34 | Emergency (ER) | payer OTHER ==
[~2021-01-29] VITALS: Ht 175.3 cm; Wt 131.8 kg
[~2021-01-29 15:34] MED LIST changes: +OMEP40CA45 PO; -OMEP40CA5 PO; -TIZA4TAB PO; +TIZA4TAB2 PO; +TRAZ-123 PO; -TRAZ-86 PO
--- NOTE | 2021-01-29 19:36 | PHYS DOC ---
Past Medical History Past Medical History: Anxiety, Arthritis, Asthma, Cancer, Depression, Fib romyalgia, Migraines, Other Additional Past Medical Histor: PTSD, INSOMNIA, BURSITIS, CA left kidney (SHALOM RUBIO SOCIETY EDITOR) Past Surgical History: Cholecystectomy, Tonsillectomy, Tubal ligation Additional Past Surgical Histo: LAPROSCOPY,MIRENA REMOVAL, dental, Left kidney tumor removal (SHALOM RUBIO SOCIETY EDITOR) Smoking Status: Current Every Day Smoker Alcohol Use: Occasionally Drug Use: Other Social History Narrative: "CBD" (SHALOM RUBIO SOCIETY EDITOR) General Adult EDM: Chief Complaint: LOWER EXTREMITY SWELLING HPI: HPI: Patient is a 35 year old female with history of depression, anxiety, fibromyalgia, who presents to the ED today complaining of moderate pain to the right lower extremity that began yesterday. Patient denies any known injury. She states she was seen by the PCP today and was sent to the ED for DVT rule out. Patient states she has a known Carrington's cyst of the right knee and she believes it ruptured. Denies any chest pain, recent hospitalization, long car rides, personal family history of DVTs. Denies being on any hormones. Patient states the pain is worse on touching her right anterior villalobos proximal and. States the pain is managed with immobilization. (SHALOM RUBIO SOCIETY EDITOR) Review of Systems: Review of Systems: Constitutional: Denies fever or chills. [] Musculoskeletal: Reports right lower extremity pain. Denies back pain [] Integument: Denies rash. [] Neurologic: Denies headache, focal weakness or sensory changes. [] Psychiatric: Denies depression or anxiety. [] (SHALOM RUBIO SOCIETY EDITOR) Heart Score: C/O Chest Pain: N/A Risk Factors: Risk Factors: DM, Current or recent (<one month) smoker, HTN, HLP, family history of CAD, obesity. Risk Scores: Score 0 - 3: 2.5% MACE over next 6 weeks - Discharge Home Score 4 - 6: 20.3% MACE over next 6 weeks - Admit for Clinical Observation Score 7 - 10: 72.7% MACE over next 6 weeks - Early Invasive Strategies (SHALOM RUBIO SOCIETY EDITOR) Allergies: Allergies: Allergies Coded Allergies Type Severity Reaction Last Updated Verified oxycodone Allergy Severe HALLUCINATIONS 12/29/18 Yes Penicillins Allergy Intermediate Shortness of Air 08/17/16 Yes amoxicillin Allergy Intermediate 08/17/16 Yes latex Allergy Intermediate Rash 08/17/16 Yes (SHALOM RUBIO APRN) Physical Exam: PE: Constitutional: Well developed, well nourished, no acute distress, non-toxic appearance. [] Skin: Warm, dry, no erythema, no rash. [] Back: No tenderness, no CVA tenderness. [] Extremities: Generalized soft tissue swelling noted from the right villalobos to the ankle. Negative Homans' sign to the right lower extremity. Tenderness on palpation of the right proximal villalobos. Full range of motion to the right lower extremity. +2 right pedal pulse Neurologic: Alert and oriented X 3, normal motor function, normal sensory function, no focal deficits noted. [] Psychologic: Affect normal, judgement normal, mood normal. [] (SHALOM RUBIO APRN) Current Patient Data: Vital Signs: Vital Signs Date Time Temp Pulse Resp B/P (MAP) Pulse Ox O2 Delivery O2 Flow Rate FiO2 01/29/21 18:00 98.1 91 20 136/78 (97) 98 Room Air 98.1 (SHALOM RUBIO SOCIETY EDITOR) EKG: EKG: [] (SHALOM RUBIO APRN) Radiology/Procedures: Radiology/Procedures: []PROCEDURE: VENOUS LOWER EXTREMITY RIGHT EXAMINATION: RIGHT LOWER EXTREMITY - UNILATERAL VENOUS DOPPLER. Technique: Ultrasound evaluation of the right lower extremity was performed from the groin to the upper calf with huerta scale, spectral and color doppler evaluation. Additional imaging of the region of interest in the anterior right lower leg was performed. Indication: Leg swelling Comparison: None Findings: There is normal venous flow and compressibility of right common femora l vein, femoral vein, popliteal vein, and visualized proximal calf veins. Region of clinical interest in the anterior right lower leg was performed, with normal subcutaneous tissue without discrete mass. Impression: No evidence for deep vein thrombosis of right lower extremity from the level of the calf veins to the groins. Electronically signed by: Robin Hudson MD (01/29/2021 8:10 PM) [facility] DICTATED and SIGNED BY: ROBIN HUDSON MD DATE: 01/29/21 [id number] 0 (SHALOM RUBIO APRN) Course & Med Decision Making: Course & Med Decision Making Pertinent Labs and Imaging studies reviewed. (See chart for details) This is a 35-year-old female patient presented to the ED today complaining of right lower extremity pain and swelling, she was sent to the ED for DVT rule out. Symptoms began yesterday. Venous Doppler of the right lower extremity is negative for DVT. Discharge to home. Follow-up with PCP. You were evaluated in the emergency room for right lower extremity pain, the venous Doppler of the right lower extremity is negative for DVT. (SHALOM RUBIO APRN) Dragon Disclaimer: Dragon Disclaimer: This electronic medical record was generated, in whole or in part, using a voice recognition dictation system. (SHALOM RUBIO APRN) Departure Departure Impression: Primary Impression: Edema of right lower extremity Disposition: HOME / SELF CARE / HOMELESS Condition: STABLE Referrals: PEYTON DOLAN MD (PCP) Follow-up in 1 to 2 weeks Patient Instructions: Edema, [id number] Additional Instructions: You were evaluated in the medicine for right lower extremity swelling, venous Doppler of the right lower extremity is negative for DVT. Please consider wearing compression stocking to bilateral lower extremities. Please consider elevating bilateral lower extremities above your heart when resting. Follow-up with your doctor in 1 to 2 weeks. Attending Signature Attending Signature I have participated in the care of this patient and I have reviewed and agree with all pertinent clinical information above including history, exam, and recommendations. (MAKAYLA CRAWFORD MD) SHALOM RUBIO APRN Jan 29, 2021 19:36 MAKAYLA CRAWFORD MD Jan 30, 2021 06:04
--- NOTE | 2021-01-29 20:13 | RAD ---
EXAMINATION: RIGHT LOWER EXTREMITY - UNILATERAL VENOUS DOPPLER. Technique: Ultrasound evaluation of the right lower extremity was performed from the groin to the upp er calf with huerta scale, spectral and color doppler evaluation. Additional imaging of the region of i nterest in the anterior right lower leg was performed. Indication: Leg swelling Comparison: None Findings: There is normal venous flow and compressibility of right common femoral vein, femoral vein, popliteal vein, and visualized proximal calf veins. Region of clinical interest in the anterior righ t lower leg was performed, with normal subcutaneous tissue without discrete mass. Impression: No evidence for deep vein thrombosis of right lower extremity from the level of the calf veins to the groins. Electronically signed by: Robin Escobar MD (01/29/2021 8:10 PM) JAKE
[2021-01-29] MEDS ORDERED: VANCOMYCIN PER PHARMACY MC ONE (20:15)
[2021-01-29] MEDS ORDERED: IV NORMAL SALINE 1000ML BAG 1,000 ML IV SCH (20:15)
[2021-01-29] MEDS ORDERED: VANCOMYCIN 2 GM in IV NORMAL SALINE 500ML BAG 500 ML IV ONE (20:30)
[2021-01-29 20:46] VITALS: BP 128/68
[2021-01-29] MEDS ORDERED: PIPERACILLIN/TAZOBACTAM 4.5 GM in IV NORMAL SALINE 100ML 100 ML IV ONE (21:00)
== END 2021-01-29 20:50 | disposition home or self-care (01) ==
LOC: ER 15:50
DX: R60.0 Localized edema (principal); M79.661 Pain in right lower leg; F41.9 Anxiety disorder, unspecified; M19.90 Unspecified osteoarthritis, unspecified site; J45.909 Unspecified asthma, uncomplicated; F32.9 Major depressive disorder, single episode, unspecified; M79.7 Fibromyalgia; G43.909 Migraine, unspecified, not intractable, without status migrainosus; F17.200 Nicotine dependence, unspecified, uncomplicated; Z90.49 Acquired absence of other specified parts of digestive tract; Z98.51 Tubal ligation status; Z98.890 Other specified postprocedural states; Z88.5 Allergy status to narcotic agent; Z88.0 Allergy status to penicillin; Z88.1 Allergy status to other antibiotic agents; Z91.040 Latex allergy status
CPT/HCPCS: 93971; 99284

== ENCOUNTER → 2021-02-05 | Outpatient (CLI) | payer OTHER ==
[2021-01-29 20:46] VITALS: BP 128/68
--- NOTE | 2021-02-05 11:12 | KCIC ---
EXAM: Right tibia and fibula, 2 views. HISTORY: Pain and edema. COMPARISON: None. FINDINGS: 2 views of the right tibia and fibula are obtained. There is no fracture, dislocation or duarte bluxation. There is no lytic or sclerotic osseous lesion. There is no periosteal reaction. There is m ild medial compartment spurring of the right knee. IMPRESSION: 1. No acute osseous finding. 2. Mild medial compartment osteoarthritis of the right knee. Electronically signed by: Pat Patton MD (02/05/2021 11:10 AM) [id number]
== END ==
LOC: KCIC 10:30
PROVIDERS: ATTEND Physician Assistant
DX: M17.11 Unilateral primary osteoarthritis, right knee (principal); M79.604 Pain in right leg; R60.0 Localized edema
CPT/HCPCS: 73590

== ENCOUNTER → 2021-03-20 | Outpatient (CLI) | payer OTHER ==
[~2021-03-20] MED LIST changes: -OMEP40CA45 PO; +OMEP40CA7 PO
--- NOTE | 2021-03-20 14:48 | KCIC ---
Examination: MRI of the right knee without contrast HISTORY: History of right medial knee pain COMPARISON: None available TECHNIQUE: Multiplanar, multisequence MR imaging of the right knee was performed without contrast. FINDINGS: The anterior cruciate ligament, posterior cruciate ligament appears intact.The medial meniscus, later al meniscus appears intact. The medial collateral ligament, lateral collateral ligamentous complex in cluding the fibular collateral ligament, biceps femoris tendon, popliteus tendon appears intact. The medial, lateral retinaculum appears intact. Small knee joint effusion. Mild increased T2 signal identified in the Hoffa's fat pad deep to the inf rapatellar tendon likely secondary to impingement. Deep fissuring of cartilage identified in the sinclair llofemoral compartment. The extensor mechanism appears intact. IMPRESSION: 1. Mild increased T2 signal identified in the Hoffa's fat pad deep to the infrapatellar tendon likel y secondary to impingement. 2. Grade II chondromalacia patellofemoral compartment. 3. Small knee joint effusion. Electronically signed by: Manuel Calle MD (03/20/2021 2:45 PM) [id number]
== END ==
LOC: KCIC MRI 13:28
PROVIDERS: ATTEND Orthopaedic Surgery
DX: M25.461 Effusion, right knee (principal); M94.261 Chondromalacia, right knee
CPT/HCPCS: 73721

== ENCOUNTER → 2021-05-07 | Day surgery (SDC) | payer OTHER ==
[~2021-05-07] VITALS: Ht 175.3 cm; Wt 135.0 kg
[~2021-05-07] MED LIST changes: +ASPI-630 PO; +CELE100C PO; +DICY20TA3 PO; +FAMO20TA5 PO; +HYDR50TA9 PO; +IV RINGERS,LACTATED 1000ML 1,000 ML IV SCH; +LIDOCAINE 2% PF 5 ML VIAL. ONE; +METF500T16 PO; +PROPOFOL 10 MG/ML (20ML) VIAL. IV ONE; +RIZA10TA PO; +SUCR1TAB35 PO
[2021-05-07 12:04] VITALS: BP 118/66
[2021-05-07 14:45] VITALS: BP 111/62
--- NOTE | 2021-05-08 16:07 | PATHOLOGY ---
[facility] Accession Number: [id number] . 01 Material submitted: . PART A: esophagus - DISTAL ESOPHAGUS BIOPSY. Modifiers: distal PART B: colon - RANDOM COLON BIOPSY . 01 Clinical history: . DYSPHAGIA/DIARRHEA EGD/COLONOSCOPY . 02 Diagnosis: A. Esophageal biopsies, distal esophagus: - Segments of esophagogastric mucosa showing mild chronic inflammation and segment of columnar lined mucosa showing mild chronic inflammation and intestinal metaplasia with goblet cells consistent with Diop's change. . B. Colonic mucosa, random colon biopsies: - Hyperplastic polyp (1). - Segments of colonic mucosa showing no significant pathologic abnormalities. (JPM:verna; 05/08/2021) S 05/08/2021 1408 Local . 02 Comment: Sections of the distal esophageal biopsy reveal segments of esophagogastric mucosa showing mild chronic inflammation. The squamous esophageal mucosa is hyperplastic consistent with reflux esophagitis. There is also a segment of columnar lined mucosa showing mild chronic inflammation and focal intestinal metaplasia with goblet cells consistent with Diop's change. There is no dysplasia or evidence of malignancy. . Sections of the random colon biopsy reveal a hyperplastic polyp, in addition to multiple segments of colonic mucosa. These latter segments show no evidence of a chronic destructive colitis, lymphocytic colitis, or collagenous colitis. (JPM:verna; 05/08/2021) . 02 Electronically signed: . Roel Fuller MD, Pathologist NPI- [id number] . 01 Gross description: . A. The specimen is received in formalin, labeled "Afriac Carvajalmary and distal esophagus BX". It consists of multiple hayes irregular soft tissue fragments measuring 0.6 x 0.5 x 0.2 cm in aggregate. The specimen is entirely submitted between sponges in A1. . B. The specimen is received in formalin, labeled "Generaux, Vikki and random colon BX". It consists of multiple hayes irregular soft tissue fragments measuring 1.5 x 0.9 x 0.3 cm in aggregate. The specimen is entirely submitted between sponges in B1. (MRF; 05/07/2021) MFE/MFE 05/07/2021 2018 Local . 02 Pathologist provided ICD-10: K20.90, K22.70, K63.5 . 02 CPT . 649580, 228930 Specimen Comment: A courtesy copy of this report has been sent to [phone], [phone] Specimen Comment: [id number] Specimen Comment: Report sent to / DR DOLAN Performed at: 01 [facility] [address], [place] [id number] MD John Crane MD Phone: [phone] Performed at: 02 [facility] [address], [place] [id number] MD Roel Fuller MD Phone: [phone]
== END | disposition home or self-care (01) ==
LOC: ENDOS 11:26
PROVIDERS: ATTEND Internal Medicine Gastroenterology
DX: R19.7 Diarrhea, unspecified (principal); K64.0 First degree hemorrhoids; K63.5 Polyp of colon; R13.10 Dysphagia, unspecified; R12 Heartburn; K22.70 Barrett's esophagus without dysplasia; K63.89 Other specified diseases of intestine; K31.89 Other diseases of stomach and duodenum; K21.00 Gastro-esophageal reflux disease with esophagitis, without bleeding; I10 Essential (primary) hypertension; J45.909 Unspecified asthma, uncomplicated; E66.9 Obesity, unspecified; E11.9 Type 2 diabetes mellitus without complications; M19.90 Unspecified osteoarthritis, unspecified site; F41.9 Anxiety disorder, unspecified; F32.9 Major depressive disorder, single episode, unspecified; F17.210 Nicotine dependence, cigarettes, uncomplicated; Z79.82 Long term (current) use of aspirin; Z79.84 Long term (current) use of oral hypoglycemic drugs; Z79.899 Other long term (current) drug therapy; Z90.49 Acquired absence of other specified parts of digestive tract; Z98.51 Tubal ligation status; Z98.890 Other specified postprocedural states; Z72.89 Other problems related to lifestyle; Z88.0 Allergy status to penicillin; Z88.1 Allergy status to other antibiotic agents; Z91.040 Latex allergy status; Z88.8 Allergy status to other drugs, medicaments and biological substances
CPT/HCPCS: 43239; 43450; 45380; 81025; 88305; J2704

== ENCOUNTER → 2021-06-25 | Outpatient (CLI) | payer OTHER ==
[2021-05-07 14:45] VITALS: BP 111/62
[~2021-06-25] MED LIST changes: +GADOTERATE 7.5 MMOL/15ML VIAL. IVP ONE; -IV RINGERS,LACTATED 1000ML 1,000 ML IV SCH; -LIDOCAINE 2% PF 5 ML VIAL. ONE; -PROPOFOL 10 MG/ML (20ML) VIAL. IV ONE
--- NOTE | 2021-06-25 14:14 | KCIC ---
EXAM: Brain MRI with and without contrast. HISTORY: Amaurosis fugax. Right facial numbness. Right muscle twitches. Renal cancer. TECHNIQUE: Multiplanar, multisequence magnetic resonance imaging of the brain was performed prior to and following the administration of intravenous contrast. COMPARISON: Head CT dated 09/04/2017. FINDINGS: There is no restricted diffusion to suggest acute or subacute infarction. There is no susce ptibility effect to suggest hemorrhage. There is no mass effect or midline shift. There is no hydroce phalus. There is no suspicious white matter lesion. The orbits are unremarkable. The paranasal sinuses mastoid air cells are unremarkable. There are norm al flow voids within the cerebral vessels. There is no suspicious calvarial lesion. There is no suspi cious enhancing lesion. IMPRESSION: No acute intracranial finding. Electronically signed by: Pat Patton MD (06/25/2021 2:11 PM) [id number]
== END ==
LOC: KCIC MRI 12:40
PROVIDERS: ATTEND Physician Assistant Medical
DX: R25.3 Fasciculation (principal); R20.0 Anesthesia of skin; G45.3 Amaurosis fugax
CPT/HCPCS: 70553; 82565; A9575

== ENCOUNTER 2021-09-04 15:50 | Emergency (ER) | payer OTHER ==
[~2021-09-04] VITALS: Ht 175.3 cm; Wt 128.1 kg
[~2021-09-04 15:50] MED LIST changes: +CYCL10TA19 PO; -CYCL10TA2 PO; +DICY20TA PO; -DICY20TA3 PO; -GADOTERATE 7.5 MMOL/15ML VIAL. IVP ONE; +TIZA-75 PO; -TIZA4TAB2 PO
[2021-09-04 16:09] VITALS: BP 137/70
[2021-09-04] MEDS ORDERED: ONDANSETRON PF 4 MG/2 ML VIAL. IVP ONE (16:15)
[2021-09-04] MEDS ORDERED: IV NORMAL SALINE 1000ML BAG 1,000 ML IV ONE (16:15)
[2021-09-04] MEDS ORDERED: KETOROLAC 15 MG/ML VIAL. IVP ONE (16:15)
--- NOTE | 2021-09-04 16:32 | ED.ADGEN ---
Past Medical History Past Medical History: Anxiety, Arthritis, Asthma, Cancer, Depression, Fibromyalgia, Migraines, Other Additional Past Medical Histor: PTSD, INSOMNIA, BURSITIS, CA left kidney Past Surgical History: Cholecystectomy, Tonsillectomy, Tubal ligation Additional Past Surgical Histo: RENAL MASS Smoking Status: Current Every Day Smoker Alcohol Use: Occasionally Drug Use: Other General Adult EDM: Chief Complaint: FLU SYMPTOM HPI: HPI: Patient is a 36 year old male coming for multiple complaints. Patient states that she was given doxycycline for sinus infection last week. States that she is more recently having body aches, nausea, vomiting, and loose stools. She also that she has had occasional cough. Denies any fevers. States she is still having congestion despite taking azelastine and Mucinex. Patient states she has had both of her Covid vaccines and her annual influenza vaccine. Review of Systems: Review of Systems: All other systems within normal limits except for as noted in the HPI Current Medications: Current Medications Medications (Trade) Dose Ordered Sig/Cindi Start Time Stop Time Status Last Admin Dose Admin Ketorolac Tromethamine (Toradol 15mg Vial) 15 mg 1X ONCE 09/04/21 16:15 09/04/21 16:20 DC 09/04/21 16:35 15 MG Ondansetron HCl (Zofran) 4 mg 1X ONCE 09/04/21 16:15 09/04/21 16:20 DC 09/04/21 16:34 4 MG Potassium Chloride (Klor-Con) 40 meq 1X ONCE 09/04/21 17:15 09/04/21 17:16 DC Sodium Chloride 1,000 ml @ 1,000 mls/hr 1X ONCE 09/04/21 16:15 09/04/21 17:14 DC 09/04/21 16:34 1,000 MLS/HR Allergies: Allergies: Allergies Coded Allergies Type Severity Reaction Last Updated Verified oxycodone Allergy Severe HALLUCINATIONS 05/07/21 Yes Penicillins Allergy Intermediate Shortness of Air 05/07/21 Yes amoxicillin Allergy Intermediate 05/07/21 Yes latex Allergy Intermediate Rash 05/07/21 Yes Physical Exam: PE: Constitutional: Well developed, well nourished, no acute distress, non-toxic appearance. [] HENT: Normocephalic, atraumatic, bilateral external ears normal, nose normal. [] Eyes: PERRLA, conjunctiva normal, no discharge. [] Neck: No rigidity, supple, no stridor. [] Cardiovascular: Regular rate and rhythm, brisk cap refill [] Lungs & Thorax: Non labored symmetric respirations, no tachypnea or respiratory distress [] Abdomen: Soft, nondistended, upper abdominal tender. Skin: Warm, dry, no erythema, no rash. [] Back: Unremarkable Extremities: No deformities, range of motion grossly intact, no lower extremity edema [] Neurologic: Alert and oriented X 3, no focal deficits noted. [] Psychologic: Affect normal, judgement normal, mood normal. [] Current Patient Data: Labs: Laboratory Tests Test 09/04/21 16:25 09/04/21 16:30 09/04/21 16:44 Influenza Type A Antigen Negative (NEGATIVE) Influenza Type B Antigen Negative (NEGATIVE) SARS-CoV-2 Antigen (Rapid) Negative (NEGATIVE) White Blood Count 11.4 x10^3/uL (4.0-11.0) H Red Blood Count 4.92 x10^6/uL (3.50-5.40) Hemoglobin 15.6 g/dL (12.0-15.5) H Hematocrit 44.7 % (36.0-47.0) Mean Corpuscular Volume 91 fL (79-100) Mean Corpuscular Hemoglobin 32 pg (25-35) Mean Corpuscular Hemoglobin Concent 35 g/dL (31-37) Red Cell Distribution Width 13.9 % (11.5-14.5) Platelet Count 250 x10^3/uL (140-400) Neutrophils (%) (Auto) 74 % (31-73) H Lymphocytes (%) (Auto) 19 % (24-48) L Monocytes (%) (Auto) 6 % (0-9) Eosinophils (%) (Auto) 0 % (0-3) Basophils (%) (Auto) 1 % (0-3) Neutrophils # (Auto) 8.4 x10^3/uL (1.8-7.7) H Lymphocytes # (Auto) 2.2 x10^3/uL (1.0-4.8) Monocytes # (Auto) 0.7 x10^3/uL (0.0-1.1) Eosinophils # (Auto) 0.0 x10^3/uL (0.0-0.7) Basophils # (Auto) 0.1 x10^3/uL (0.0-0.2) Sodium Level 138 mmol/L (136-145) Potassium Level 3.1 mmol/L (3.5-5.1) L Chloride Level 99 mmol/L (98-107) Carbon Dioxide Level 26 mmol/L (21-32) Anion Gap 13 (6-14) Blood Urea Nitrogen 15 mg/dL (7-20) Creatinine 1.0 mg/dL (0.6-1.0) Estimated GFR (Cockcroft-Gault) 63.5 BUN/Creatinine Ratio 15 (6-20) Glucose Level 115 mg/dL (70-99) H Calcium Level 8.8 mg/dL (8.5-10.1) Phosphorus Level 2.7 mg/dL (2.6-4.7) Magnesium Level 1.9 mg/dL (1.8-2.4) Total Bilirubin 0.6 mg/dL (0.2-1.0) Aspartate Amino Transferase (AST) 15 U/L (15-37) Alanine Aminotransferase (ALT) 34 U/L (14-59) Alkaline Phosphatase 89 U/L (46-116) Total Protein 7.2 g/dL (6.4-8.2) Albumin 4.0 g/dL (3.4-5.0) Albumin/Globulin Ratio 1.3 (1.0-1.7) Lipase 94 U/L (73-393) Urine Collection Type Unknown Urine Color Kim Urine Clarity Clear Urine pH 6.0 (<5.0-8.0) Urine Specific Destin 1.025 (1.000-1.030) Urine Protein Negative mg/dL (NEG-TRACE) Urine Glucose (UA) Negative mg/dL (NEG) Urine Ketones (Stick) Trace mg/dL (NEG) Urine Blood Negative (NEG) Urine Nitrite Negative (NEG) Urine Bilirubin Small (NEG) Urine Urobilinogen Dipstick 0.2 mg/dL (0.2 mg/dL) Urine Leukocyte Esterase Moderate (NEG) Urine RBC Occ /HPF (0-2) Urine WBC 1-4 /HPF (0-4) Urine Squamous Epithelial Cells Many /LPF Urine Bacteria Moderate /HPF (0-FEW) Urine Mucus Marked /LPF Laboratory Tests 09/04/21 16:30 Laboratory Tests 09/04/21 16:30 Vital Signs: Vital Signs Date Time Temp Pulse Resp B/P (MAP) Pulse Ox O2 Delivery O2 Flow Rate FiO2 09/04/21 16:09 99.3 102 22 137/70 (92) 97 Room Air 99.3 EKG: EKG: [] Heart Score: C/O Chest Pain: No Risk Factors: Risk Factors: DM, Current or recent (<one month) smoker, HTN, HLP, family histo ry of CAD, obesity. Risk Scores: Score 0 - 3: 2.5% MACE over next 6 weeks - Discharge Home Score 4 - 6: 20.3% MACE over next 6 weeks - Admit for Clinical Observation Score 7 - 10: 72.7% MACE over next 6 weeks - Early Invasive Strategies Radiology/Procedures: Radiology/Procedures: [] Course & Med Decision Making: Course & Med Decision Making Pertinent Labs and Imaging studies reviewed. (See chart for details) [] Dragon Disclaimer: Dragon Disclaimer: This electronic medical record was generated, in whole or in part, using a voice recognition dictation system. Departure Departure Impression: Primary Impression: Nausea vomiting and diarrhea Additional Impressions: UTI (urinary tract infection) Hypokalemia Disposition: HOME / SELF CARE / HOMELESS Condition: STABLE Referrals: PEYTON DOLAN MD (PCP) Patient Instructions: Diet for Diarrhea, Adult Scripts Levofloxacin (LEVOFLOXACIN) 750 Mg Tablet 1 TAB PO DAILY for antibiotic for 7 Days, #7 TAB Prov: LETTY ALCARAZ MD 09/04/21 Metoclopramide Hcl (REGLAN) 10 Mg Tablet 1 TAB PO TID PRN for NAUSEA for 10 Days, #20 TAB 0 Refills before food and bedtime Prov: LETTY ALCARAZ MD 09/04/21 Problem Qualifiers LETTY ALCARAZ MD Sep 04, 2021 16:32
[2021-09-04 16:39] LABS: BASO # 0.1 x10^3/uL (0.0-0.2); BASO % 1 % (0-3); EOS % 0 % (0-3); HEMATOCRIT 44.7 % (36.0-47.0); HEMOGLOBIN 15.6 g/dL (12.0-15.5); LYMPH # 2.2 x10^3/uL (1.0-4.8); LYMPH % 19 % (24-48); MEAN CORPUSCULAR HEMOGLOBIN 32 pg (25-35); MEAN CORPUSCULAR HGB CONC 35 g/dL (31-37); MEAN CORPUSCULAR VOLUME 91 fL (79-100); MONO # 0.7 x10^3/uL (0.0-1.1); MONO % 6 % (0-9); NEUT # 8.4 x10^3/uL (1.8-7.7); NEUT % 74 % (31-73); PLATELET COUNT 250 x10^3/uL (140-400); RED BLOOD COUNT 4.92 x10^6/uL (3.50-5.40); RED CELL DISTRIBUTION WIDTH 13.9 % (11.5-14.5); WHITE BLOOD COUNT 11.4 x10^3/uL (4.0-11.0)
[2021-09-04 16:49] LABS: BILIRUBIN,URINE SMALL (NEG); CLARITY,URINE CLEAR; COLOR,URINE AMBER; NITRITE,URINE NEGATIVE (NEG); PROTEIN,URINE NEGATIVE (NEG-TRACE); UROBILINOGEN,URINE 0.2 mg/dL (0.2 mg/dL)
[2021-09-04 16:54] LABS: BACTERIA,URINE MODERATE /HPF (0-FEW)
[2021-09-04 16:55] LABS: CALCIUM 8.8 mg/dL (8.5-10.1); GFR 63.5; POTASSIUM 3.1 mmol/L (3.5-5.1)
[2021-09-04 16:55] LABS: RBC,URINE OCC /HPF (0-2)
[2021-09-04 16:55] LABS: INFLUENZA A PATIENT NEGATIVE (NEGATIVE); INFLUENZA B PATIENT NEGATIVE (NEGATIVE)
[2021-09-04 17:02] LABS: ALBUMIN/GLOBULIN RATIO 1.3 (1.0-1.7); MAGNESIUM 1.9 mg/dL (1.8-2.4); PHOSPHORUS 2.7 mg/dL (2.6-4.7); TOTAL BILIRUBIN 0.6 mg/dL (0.2-1.0); TOTAL PROTEIN 7.2 g/dL (6.4-8.2)
[2021-09-04] MEDS ORDERED: POTASSIUM CHLORIDE 20 MEQ TABLET.ER. PO ONE (17:15)
[2021-09-04] MEDS ORDERED: LEVO750T5 PO (17:23)
[2021-09-04] MEDS ORDERED: METO10TA81 PO (17:23)
--- NOTE | 2021-09-05 16:01 | NUR ---
IP: Informed pt of negative covid test. Pt verbalized understanding.
== END 2021-09-04 17:40 | disposition home or self-care (01) ==
LOC: ER 15:50
DX: N39.0 Urinary tract infection, site not specified (principal); Z20.822 Contact with and (suspected) exposure to COVID-19; R11.2 Nausea with vomiting, unspecified; R19.7 Diarrhea, unspecified; E87.6 Hypokalemia; J45.909 Unspecified asthma, uncomplicated; G43.909 Migraine, unspecified, not intractable, without status migrainosus; F17.200 Nicotine dependence, unspecified, uncomplicated; F43.10 Post-traumatic stress disorder, unspecified; Z90.49 Acquired absence of other specified parts of digestive tract; Z98.51 Tubal ligation status; Z88.0 Allergy status to penicillin; Z88.1 Allergy status to other antibiotic agents; Z91.040 Latex allergy status; Z88.5 Allergy status to narcotic agent
CPT/HCPCS: 36415; 80053; 81001; 83690; 83735; 84100; 85025; 87086; 87426; 87804; 96361; 96374; 96375; 99284; J1885; J2405; J7030; U0003; U0005

== ENCOUNTER 2021-11-13 17:11 | Emergency (ER) | payer OTHER ==
[~2021-11-13] VITALS: Ht 175.3 cm; Wt 129.6 kg
[~2021-11-13 17:11] MED LIST changes: +LEVO750T5 PO; +METO10TA81 PO
[2021-11-13] MEDS ORDERED: fentaNYL PF VIAL 100 MCG/2 ML VIAL IVP ONE (18:15)
--- NOTE | 2021-11-13 18:22 | PHYS DOC ---
Past Medical History Past Medical History: Anxiety, Arthritis, Asthma, Cancer, Depression, Fib romyalgia, Migraines, Other Additional Past Medical Histor: PTSD, INSOMNIA, BURSITIS, CA left kidney Past Surgical History: Cholecystectomy, Tonsillectomy, Tubal ligation Additional Past Surgical Histo: RENAL MASS Smoking Status: Current Every Day Smoker Alcohol Use: Occasionally Drug Use: Other General Adult EDM: Chief Complaint: LOWER EXTREMITY SWELLING HPI: HPI: Patient is a 36 year old female who presents with bilateral lower leg swelling with tenderness in her bilateral lower legs that goes from right above her knees all the way down with some numbness and tingling. Patient states she sent in by her primary care doctor because she cannot handle the pain and they need to rule out blood clots. She has a history of swelling of her bilateral legs, myalgia, fibromyalgia, depression, tonsillectomy, tubal ligation, asthma, sinusitis, diabetes, GERD, hypertension, anxiety, PTSD, cancer of the left kidney, cholecystectomy. Starting her pain a 10 out of 10 at this time. Review of Systems: Review of Systems: Constitutional: Denies fever or chills. [] Eyes: Denies change in visual acuity. [] HENT: Denies nasal congestion or sore throat. [] Respiratory: Denies cough or shortness of breath. [] Cardiovascular: Denies chest pain or + bilateral lower leg edema. [] GI: Denies abdominal pain, nausea, vomiting, bloody stools or diarrhea. [] : Denies dysuria. [] Musculoskeletal: Denies back pain or joint pain. + Bilateral lower leg pain [] Integument: Denies rash. [] Neurologic: Denies headache, focal weakness or sensory changes. [] Endocrine: Denies polyuria or polydipsia. [] Lymphatic: Denies swollen glands. [] Psychiatric: Denies depression or anxiety. [] Heart Score: C/O Chest Pain: No Current Medications: Current Medications Medications (Trade) Dose Ordered Sig/Cindi Start Time Stop Time Status Last Admin Dose Admin Fentanyl Citrate (Fentanyl 2ml Vial) 50 mcg 1X ONCE 11/13/21 18:15 11/13/21 18:16 DC Allergies: Allergies: Allergies Coded Allergies Type Severity Reaction Last Updated Verified oxycodone Allergy Severe HALLUCINATIONS 11/13/21 Yes Penicillins Allergy Intermediate Shortness of Air 11/13/21 Yes amoxicillin Allergy Intermediate 11/13/21 Yes latex Allergy Intermediate Rash 11/13/21 Yes Physical Exam: PE: Constitutional: Well developed, well nourished, no acute distress, non-toxic appearance. [] HENT: Normocephalic, atraumatic, bilateral external ears normal, oropharynx moist, no oral exudates, nose normal. [] Eyes: PERRLA, EOMI, conjunctiva normal, no discharge. [] Neck: Normal range of motion, no tenderness, supple, no stridor. [] Cardiovascular:Heart rate regular rhythm, no murmur [] Lungs & Thorax: Bilateral breath sounds clear to auscultation [] Abdomen: Bowel sounds normal, soft, no tenderness, no masses, no pulsatile masses. [] Skin: Warm, dry, no erythema, no rash. [] Back: No tenderness, no CVA tenderness. [] Extremities: Bilateral lower leg 1+ tenderness, no cyanosis, no clubbing, ROM intact, 1+ edema. [] Neurologic: Alert and oriented X 3, normal motor function, normal sensory function, no focal deficits noted. [] Psychologic: Affect normal, judgement normal, mood normal. [] Current Patient Data: Vital Signs: Vital Signs Date Time Temp Pulse Resp B/P (MAP) Pulse Ox O2 Delivery O2 Flow Rate FiO2 11/13/21 17:34 98.5 86 22 143/75 (97) 98 Room Air 98.5 EKG: EKG: [] Radiology/Procedures: Radiology/Procedures: [] Impression: [facility] [address] [facility] [place], [place] [id number] IMAGING REPORT Signed PATIENT: RICHARD ROMANOUNT: [id number] : 1985 LOCATION: ER AGE: 36 SEX: F EXAM STATUS: REG ER ORD. PHYSICIAN: ROCAEL CHAND APRN REASON: swelling, tenderness PROCEDURE: VENOUS LOWER EXT BILATERAL Bilateral lower extremity venous duplex Doppler ultrasound HISTORY: Bilateral leg pain. Bilateral leg swelling and edema. Lines: No DVT grayscale sonography with compressibility, and color Doppler blood flow and augmentation of blood flow the common femoral veins, profunda femoral veins, superficial femoral veins and popliteal veins. No DVT evident with patent color Doppler blood flow to the posterior tibial and peroneal veins in the calves. IMPRESSION: Negative bilateral legs for DVT. Electronically signed by: Rubio Welch MD (11/13/2021 7:41 PM) [facility] DICTATED and SIGNED BY: RUBIO WELCH MD DATE: 11/13/21 [id number] Course & Med Decision Making: Course & Med Decision Making Pertinent Labs and Imaging studies reviewed. (See chart for details) See HPI. Alert and oriented x4. Ambulatory steady gait. Skin pink warm and dry. Tenderness to bilateral lower legs that is generalized. There may be 1+ swelling bilateral legs. She is morbidly obese. Pedal pulses are strong and present bilaterally. Pedal pulses are strong and present. Cap refill less than 2 seconds. I do not see any bruising. Patient states she has not taking any pain medications today. Denies chest pain, shortness of breath, recent travel, recent surgery, abdominal pain, nausea, vomiting, diarrhea, fever, back pain, back injury. Ultrasound shows no DVT. Blood work within normal limits. Patient states that the fentanyl helped. She states that she does have her Celebrex and gabapentin at home that she has been using for pain. She is asking for a few Tylenol #3. Patient to follow-up with Dr. Dolan. [] Vasiliy Disclaimer: Vasiliy Disclaimer: This electronic medical record was generated, in whole or in part, using a voice recognition dictation system. Departure Departure Impression: Primary Impression: Lower extremity pain Qualified Codes: M79.604 - Pain in right leg; M79.605 - Pain in left leg Disposition: 01 HOME / SELF CARE / HOMELESS Condition: STABLE Referrals: PEYTON DOLAN MD (PCP) Patient Instructions: Pain, Neuropathic Additional Instructions: Follow-up with your primary care provider. Drink plenty of fluids. Use elevation, heat or ice. Take all your medications as they are prescribed and with food. Scripts Acetaminophen With Codeine (ACETAMINOPHEN-COD #3 TABLET) 1 Each Tablet 1 TAB PO PRN Q6HRS PRN for PAIN, #10 TAB Prov: ROCAEL CHAND APRN 11/13/21 ROCAEL CHAND APRN Nov 13, 2021 18:22
[2021-11-13 18:37] LABS: BASO # 0.1 x10^3/uL (0.0-0.2); BASO % 1 % (0-3); EOS # 0.1 x10^3/uL (0.0-0.7); EOS % 1 % (0-3); HEMATOCRIT 43.2 % (36.0-47.0); HEMOGLOBIN 14.7 g/dL (12.0-15.5); LYMPH # 3.1 x10^3/uL (1.0-4.8); LYMPH % 24 % (24-48); MEAN CORPUSCULAR HEMOGLOBIN 31 pg (25-35); MEAN CORPUSCULAR HGB CONC 34 g/dL (31-37); MEAN CORPUSCULAR VOLUME 91 fL (79-100); MONO # 0.7 x10^3/uL (0.0-1.1); MONO % 5 % (0-9); NEUT # 9.1 x10^3/uL (1.8-7.7); NEUT % 70 % (31-73); PLATELET COUNT 305 x10^3/uL (140-400); RED BLOOD COUNT 4.72 x10^6/uL (3.50-5.40); RED CELL DISTRIBUTION WIDTH 14.5 % (11.5-14.5); WHITE BLOOD COUNT 13.1 x10^3/uL (4.0-11.0)
[2021-11-13 18:47] LABS: CALCIUM 9.1 mg/dL (8.5-10.1); CREATININE 0.9 mg/dL (0.6-1.0); GFR 71.7; POTASSIUM 3.8 mmol/L (3.5-5.1)
[2021-11-13 18:53] LABS: ALBUMIN 3.7 g/dL (3.4-5.0); TOTAL BILIRUBIN 0.2 mg/dL (0.2-1.0); TOTAL PROTEIN 7.3 g/dL (6.4-8.2)
--- NOTE | 2021-11-13 19:44 | RAD ---
Bilateral lower extremity venous duplex Doppler ultrasound HISTORY: Bilateral leg pain. Bilateral leg swelling and edema. Lines: No DVT grayscale sonography with compressibility, and color Doppler blood flow and augmentatio n of blood flow the common femoral veins, profunda femoral veins, superficial femoral veins and popli teal veins. No DVT evident with patent color Doppler blood flow to the posterior tibial and peroneal veins in the calves. IMPRESSION: Negative bilateral legs for DVT. Electronically signed by: Maynor Welch MD (11/13/2021 7:41 PM) [facility]
[2021-11-13] MEDS ORDERED: ACET1TAB33 PO (19:55)
[2021-11-13 20:00] VITALS: BP 156/80
== END 2021-11-13 20:00 | disposition home or self-care (01) ==
LOC: ER 17:11
DX: M79.604 Pain in right leg (principal); M79.605 Pain in left leg; J45.909 Unspecified asthma, uncomplicated; G43.909 Migraine, unspecified, not intractable, without status migrainosus; F43.10 Post-traumatic stress disorder, unspecified; F17.200 Nicotine dependence, unspecified, uncomplicated; Z90.49 Acquired absence of other specified parts of digestive tract; Z88.0 Allergy status to penicillin; Z88.1 Allergy status to other antibiotic agents; Z88.5 Allergy status to narcotic agent; Z91.040 Latex allergy status
CPT/HCPCS: 36415; 80053; 83735; 83880; 85025; 93970; 96374; 99284; J3010